=== PATIENT | female | born 1955 | race Caucasian/White ===

== ENCOUNTER 2019-06-27 14:02 | Emergency (ER) | payer MEDICARE, OTHER, SELFPAY ==
[2019-06-27 14:24] VITALS: BP 128/62; PULSE 79; RESP 16; TEMP 37.6; O2SAT 96; BMI 26.1
--- NOTE | 2019-06-27 15:36 | ED_ITS ---
HPI - Abdominal Pain <SAM Larkin-BC - Last Filed: 06/27/19 18:57> General Chief Complaint: Abdominal Pain Stated Complaint: patient states lt side pelvic pain x3-4days Time Seen by Provider: 06/27/19 14:20 Source: patient Mode of arrival: Ambulatory Limitations: no limitations History of Present Illness HPI narrative: At the patient is a 63-year-old female nonsmoker with history of sleep apnea who presents with a chief complaint of left lower quadrant pain times 3-4 days. She has low-grade fevers, denies any nausea vomiting or diarrhea. Last bowel movement today and was reported to be normal. No chest pain or shortness of breath. She was seen this morning by nurse practitioner at the [facility], who referred her to the emergency department for further workup and evaluation. She denies any alleviating or exacerbating factors. Has not taken anything at home to feel better. Related Data Home Medications Medication Instructions Recorded Confirmed aspirin 81 mg tablet,delayed 81 mg PO DAILY 11/12/18 03/11/19 release paroxetine HCl 40 mg tablet 40 mg PO DAILY 11/12/18 03/11/19 trazodone 50 mg tablet 50 mg PO DAILY 11/12/18 03/11/19 Previous Rx's Medication Instructions Recorded amoxicillin-pot clavulanate 1 tab PO Q8HR 10 Days #30 tab 06/27/19 [Augmentin] hydrocodone-acetaminophen [Pavo] 1 tab PO Q4-6H PRN #10 tab 06/27/19 ondansetron 4 mg PO Q6H PRN #20 tab 06/27/19 Allergies Allergy/AdvReac Type Severity Reaction Status Date / Time No Known Drug Allergies Allergy Unverified 03/11/19 14:42 Review of Systems <YENI LarkinBC - Last Filed: 06/27/19 18:57> Review of Systems Narrative: GENERAL: Denies chills, fatigue, malaise, fever, sweats. HEENT: Denies sinus pain, ear pain, sore throat, difficulty swallowing, dizziness. RESPIRATORY: Denies dyspnea, cough, wheezing, hemoptysis, sputum. CARDIOVASCULAR: Denies chest pain, palpitations, orthopnea, edema, GASTROINTESTINAL: See HPI : Denies dysuria, frequency, incontinence, hematuria, urinary retention. MUSCULOSKELETAL: denies weakness, joint pain, or bony pain SKIN: Denies rash, skin lesions, or other NEUROLOGIC: Denies weakness, headache, numbness, change in speech, confusion, seizures, incoordination. PSYCHIATRIC: No concerning psychosocial issues. 12 point review of systems is negative except for those stated above Patient History <BOYD Larkin - Last Filed: 06/27/19 18:57> Medical History Depression (Chronic) Insomnia (Chronic) Obstructive sleep apnea (Chronic) Snoring (Chronic) Social History Smoking Status: Never smoker Smoking Status: Never smoker Substance Use Type: does not use Exam <BOYD Larkin - Last Filed: 06/27/19 18:57> Narrative Exam Narrative: GENERAL: This is a well-nourished, well-developed patient, in acute distress HEAD: Atraumatic. Normocephalic. No temporal or scalp tenderness. EYES: Pupils equal round and reactive. Extraocular motions intact. No scleral icterus. No injection or drainage. ENT: Nose without bleeding, purulent drainage or septal hematoma. Throat without erythema, tonsillar hypertrophy or exudate. Uvula midline. Airway patent. NECK: Trachea midline. No JVD or lymphadenopathy. Supple, nontender, no meningeal signs. CARDIOVASCULAR: Regular rate and rhythm RESPIRATORY: Clear to auscultation. Breath sounds equal bilaterally. No wheezes, rales, or rhonchi. No cough. No increased respiratory effort. No accessory muscle use. GASTROINTESTINAL: Abdomen soft, tenderness to left lower quadrant palpation, nondistended. No hepato-splenomegaly, or palpable masses. No guarding. Active bowel sounds all 4 quadrants EXTREMITIES: No clubbing, cyanosis, or edema. No joint tenderness, effusion, or edema noted. BACK: Nontender without deformity or crepitance. No flank tenderness. NEURO: AOx3. SKIN: No rash or erythema visible skin Initial Vital Signs Initial Vital Signs: Vital Signs Temperature 99.6 F 06/27/19 14:24 Pulse Rate 79 06/27/19 14:24 Respiratory Rate 16 06/27/19 14:24 Blood Pressure 128/62 06/27/19 14:24 Pulse Oximetry 96 06/27/19 14:24 <Alfredo Wagoner DO - Last Filed: 06/27/19 19:10> Initial Vital Signs Initial Vital Signs: Vital Signs Temperature 99.6 F 06/27/19 14:24 Pulse Rate 79 06/27/19 14:24 Respiratory Rate 16 06/27/19 14:24 Blood Pressure 128/62 06/27/19 14:24 Pulse Oximetry 96 06/27/19 14:24 Course <BOYD Larkin - Last Filed: 06/27/19 18:57> Orders Ordered: ED Orders 06/27/19 15:40 Amylase Stat Complete Blood Count AUTO DIFF Stat Comprehensive Metabolic Panel Stat Lipase Stat 06/27/19 16:20 CT abdomen pelvis w con Stat Discontinued Medications Amoxicillin/Clavulanate Potassium (Augmentin 875-125 Mg) 1 tab PO NOW ONE Stop: 06/27/19 17:03 Last Admin: 06/27/19 17:13 Dose: 1 tab Documented by: MURRAY Sodium Chloride (Normal Saline 0.9%) 1,000 mls @ 150 mls/hr IV CONT KANWAL Last Admin: 06/27/19 17:12 Dose: 150 mls/hr Documented by: MURRAY Vital Signs Vital signs: Vital Signs - 8 hr 06/27/19 14:24 06/27/19 16:16 06/27/19 17:00 Temperature 99.6 F Pulse Rate 79 87 79 Respiratory Rate 16 Blood Pressure 128/62 Blood Pressure [Left Arm] 124/60 124/60 Pulse Oximetry 96 95 98 <DO Hilaria Davis Last Filed: 06/27/19 19:10> Orders Ordered: ED Orders 06/27/19 15:40 Amylase Stat Complete Blood Count AUTO DIFF Stat Comprehensive Metabolic Panel Stat Lipase Stat 06/27/19 16:20 CT abdomen pelvis w con Stat Discontinued Medications Amoxicillin/Clavulanate Potassium (Augmentin 875-125 Mg) 1 tab PO NOW ONE Stop: 06/27/19 17:03 Last Admin: 06/27/19 17:13 Dose: 1 tab Documented by: MURRAY Sodium Chloride (Normal Saline 0.9%) 1,000 mls @ 150 mls/hr IV CONT KANWAL Last Admin: 06/27/19 17:12 Dose: 150 mls/hr Documented by: MURRAY Vital Signs Vital signs: Vital Signs - 8 hr 06/27/19 14:24 06/27/19 16:16 06/27/19 17:00 Temperature 99.6 F Pulse Rate 79 87 79 Respiratory Rate 16 Blood Pressure 128/62 Blood Pressure [Left Arm] 124/60 124/60 Pulse Oximetry 96 95 98 MDM - Abdominal Pain <Yolandewander Matamer, STUDIO MUSICIAN- - Last Filed: 06/27/19 18:57> Lab Data Result diagrams: 06/27/19 15:40 06/27/19 15:40 Labs: Lab Results 06/27/19 06/27/19 Range/Units 15:40 15:40 WBC 13.8 H (4.5-11.0) X10^3/uL RBC 4.23 (4.0-5.2) X10^6/uL Hgb 13.6 (12.0-16.0) g/dL Hct 40.6 (36-46) % MCV 95.9 (80-100) fL MCH 32.1 (26-34) PG MCHC 33.5 (30-36) % RDW 13.5 (11.6-14.8) % Plt Count 194 (150-400) X10^3/uL Neut % (Auto) 65.2 (50-75) % Lymph % (Auto) 22.4 L (25-40) % [place] % (Auto) 10.9 (3-14) % Eos % (Auto) 1.0 L (2-4) % Baso % (Auto) 0.5 (0-2) % Neut # (Auto) 9000 H (3385-2551) /uL Lymph # (Auto) 3100 (9944-3140) /uL [place] # (Auto) 1500 H (0-900) /uL Eos # (Auto) 100 (0-450) /uL Baso # (Auto) 100 (0-100) /uL Sodium 140 (137-145) mmol/L Potassium 4.3 (3.4-5.1) mmol/L Chloride 101 (98-107) mmol/L Carbon Dioxide 30 (22-32) mmol/L BUN 12 (7-17) mg/dL Creatinine 0.60 (0.52-1.04) mg/dL Estimated GFR > 60.0 (>60) mL/min BUN/Creatinine Ratio 20.0 (6-22) Glucose 106 (80-110) mg/dL Calcium 9.4 (8.4-10.2) mg/dL Total Bilirubin 0.5 (0.2-1.3) mg/dL AST 30 (14-36) IU/L ALT 16 (<35) IU/L Alkaline Phosphatase 95 (38-126) U/L Total Protein 7.9 (6.3-8.2) g/dL Albumin 4.6 (3.5-5.0) g/dL Globulin 3.3 (1.7-4.1) g/dL Albumin/Globulin Ratio 1.4 (1.0-2.8) Amylase 63 (30-110) U/L Lipase 57 (23-300) U/L Point of care testing: Urine Dip Bedside Urine Glucose 100 mg/dl Bedside Urine Bilirubin - Negative Bedside Urine Ketone + 15 Urine Specific [place] 1.015 Bedside Urine Occult Blood - Negative Bedside Urine Protein - Negative Bedside Urine Urobilinogen - Negative Bedside Urine Nitrite - Negative Bedside Urine Leukocytes - Negative Esterase Imaging Data CT scan - abdomen/pelvis: Radiologist's Impression: [address] [place] [address] CT Scan Report Signed Patient: Adina Trammell#: [id number] : 4Acct:[id number] Age/Sex: 63 / FDate of Service: 06/27/19 Loc: ED Accession Number: [id number] Procedure: CT abdomen pelvis w con Ordering Provider: Yolande Gayle [facility] PROCEDURE: CT ABDOMEN PELVIS W CON INDICATIONS: Left lower quadrant pain, fever TECHNIQUE: After the administration of intravenous contrast, 5 mm thick sections acquired from the diaphragm to the symphysis. 5 mm coronal and sagittal reformats were acquired. For radiation dose reduction, the following was used: automated exposure control, adjustment of mA and/or kV according to patient size. COMPARISON: None. FINDINGS: Image quality: Excellent. ABDOMEN: Lung bases: There is mild dependent atelectasis and mild scarring in the inferior right middle lobe. Heart size is normal. Solid organs: There is a cyst within segment 2 of the left hepatic lobe measuring up to 3.4 cm. A small cyst is also in the straight inferiorly in segment 5 of the right hepatic lobe measuring 0.7 cm. The gallbladder appears within normal limits without calcified gallstones. Biliary system is slightly dilated with the common bile duct measuring up to approximately 0.8 cm. No calcified common duct stone or disc rete obstructing mass visualized. Pancreas enhances normally. No peripancreatic fat stranding or fluid collections. No pancreatic duct dilatation. The spleen is normal in size. No adrenal nodules. Kidneys demonstrate no hydronephrosis. Peritoneum and bowel: Small bowel loops demonstrate normal wall thickness and caliber. The appendix is normal in appearance. There is colonic diverticulosis with associated diverticular wall thickening and peridiverticular inflammatory fat stranding in the left lower quadrant associated with segmental colonic wall thickening. Findings are consistent with acute diverticulitis. No macroscopic free air or abscess collection. There is a small amount of free fluid in the left paracolic gutter extending into the pelvis. Nodes and vessels: No retroperitoneal or mesenteric adenopathy by size criteria. Aorta and inferior vena cava are normal in size. Miscellaneous: No ventral hernias. PELVIS: Genitourinary: Bladder wall thickness is normal overall with mild irregularity of the bladder wall. Miscellaneous: No inguinal hernias or adenopathy. Bones: No suspicious bony lesions. No vertebral body compression fractures. IMPRESSION: 1. Sigmoid diverticulitis without evidence of diverticular abscess or macroscopic free air. 2. Mild irregularity of the bladder wall is nonspecific and may reflect a mild cystitis. Recommend correlation with urinalysis. Dictated by: Frank Bah M.D. on 06/27/2019 at 15:45 Approved by: Frank Bah M.D. on 06/27/2019 at 15:52 [facility] Narrative Medical decision making narrative: The patient is a 63-year-old female presents with a chief complaint of left lower quadrant pain. She has slight leuk ocytosis. CT is concerning for diverticulitis. Discussed Cipro and Flagyl versus amoxicillin with clavulanic acid. Patient would like to avoid Cipro, and elected to use Augmentin. Patient started on Augmentin t.i.d. as per up-to-date recommendations. Also gave prescriptions of Zofran and Pavo. Discussed at length the importance of following up with primary care provider in the next few days. Discussed coming back to the emergency department for any acute concerns such as inability keep down fluids, fever etcetera. Patient has no questions or concerns upon discharge and states understanding return precautions as well as follow-up care. Patient was able to tolerate oral medications in the emergency department. Discussed at length dietary changes. <Alfredo Wagoner DO - Last Filed: 06/27/19 19:10> Lab Data Labs: Lab Results 06/27/19 06/27/19 Range/Units 15:40 15:40 WBC 13.8 H (4.5-11.0) X10^3/uL RBC 4.23 (4.0-5.2) X10^6/uL Hgb 13.6 (12.0-16.0) g/dL Hct 40.6 (36-46) % MCV 95.9 (80-100) fL MCH 32.1 (26-34) PG MCHC 33.5 (30-36) % RDW 13.5 (11.6-14.8) % Plt Count 194 (150-400) X10^3/uL Neut % (Auto) 65.2 (50-75) % Lymph % (Auto) 22.4 L (25-40) % [place] % (Auto) 10.9 (3-14) % Eos % (Auto) 1.0 L (2-4) % Baso % (Auto) 0.5 (0-2) % Neut # (Auto) 9000 H (1020-3257) /uL Lymph # (Auto) 3100 (3824-6235) /uL [place] # (Auto) 1500 H (0-900) /uL Eos # (Auto) 100 (0-450) /uL Baso # (Auto) 100 (0-100) /uL Sodium 140 (137-145) mmol/L Potassium 4.3 (3.4-5.1) mmol/L Chloride 101 (98-107) mmol/L Carbon Dioxide 30 (22-32) mmol/L BUN 12 (7-17) mg/dL Creatinine 0.60 (0.52-1.04) mg/dL Estimated GFR > 60.0 (>60) mL/min BUN/Creatinine Ratio 20.0 (6-22) Glucose 106 (80-110) mg/dL Calcium 9.4 (8.4-10.2) mg/dL Total Bilirubin 0.5 (0.2-1.3) mg/dL AST 30 (14-36) IU/L ALT 16 (<35) IU/L Alkaline Phosphatase 95 (38-126) U/L Total Protein 7.9 (6.3-8.2) g/dL Albumin 4.6 (3.5-5.0) g/dL Globulin 3.3 (1.7-4.1) g/dL Albumin/Globulin Ratio 1.4 (1.0-2.8) Amylase 63 (30-110) U/L Lipase 57 (23-300) U/L Point of care testing: Urine Dip Bedside Urine Glucose 100 mg/dl Bedside Urine Bilirubin - Negative Bedside Urine Ketone + 15 Urine Specific [place] 1.015 Bedside Urine Occult Blood - Negative Bedside Urine Protein - Negative Bedside Urine Urobilinogen - Negative Bedside Urine Nitrite - Negative Bedside Urine Leukocytes - Negative Esterase Discharge Plan Departure Patient Disposition: Home Clinical Impression: Diverticulitis Discharge Date/Time: 06/27/19 17:48 Instructions: DI for Diverticulitis Activity Restrictions/Additional Instructions: As discussed, your CT scan shows diverticulitis. As discussed, please modify her diet accordingly. I have included a handout regarding diverticulitis. I have sent 3 prescriptions to [facility] in [place], there is 1 antibiotic, 1 pain medicine and 1 nausea medicine I have given you a prescription of a narcotic for pain. Be aware that this can be constipating and sedating. I encouraged taking with a stool softener, pushing fluids and fiber. Do not take and drive, operate heavy machinery, etc. Do not combine it with any other sedating substances such as alcohol. The combination of narcotics and alcohol and/or other sedatives can be lethal. Please be aware that we do not provide refills of controlled substances in the emergency department. Please follow up with your primary care provider. Please follow-up with primary care provider in the next few days. Please come back to the emergency department for any acute concerns such as inability keep down fluids etcetera Prescriptions: New ondansetron 4 mg tablet,disintegrating 4 mg PO Q6H PRN (Reason: nausea and vomiting) Qty: 20 RF: 0 hydrocodone-acetaminophen [Pavo] 5-325 mg tablet 1 tab PO Q4-6H PRN (Reason: pain) Qty: 10 RF: 0 amoxicillin-pot clavulanate [Augmentin] 875-125 mg tablet 1 tab PO Q8HR 10 Days Qty: 30 RF: 0 No Action trazodone 50 mg tablet 50 mg PO DAILY RF: 0 aspirin [Adult Low Dose Aspirin] 81 mg tablet,delayed release (DR/EC) 81 mg PO DAILY RF: 0 paroxetine HCl 40 mg tablet 40 mg PO DAILY RF: 0 Referrals: [facility] [Provider Group]
[2019-06-27 15:51] LABS: Add Manual Diff / Slide Review NO; Basophils Absolute Auto 100 /uL (0-100); Basophils Percent Auto 0.5 % (0-2); Eosinophils Absolute Auto 100 /uL (0-450); Hematocrit 40.6 % (36-46); Hemoglobin 13.6 g/dL (12.0-16.0); Lymphocytes Absolute Auto 3100 /uL (1100-4500); Lymphocytes Percent Auto 22.4 % (25-40); Mean Corpuscular HGB Conc 33.5 % (30-36); Mean Corpuscular Hemoglobin 32.1 PG (26-34); Mean Corpuscular Volume 95.9 fL (80-100); Monocytes Absolute Auto 1500 /uL (0-900); Monocytes Percent Auto 10.9 % (3-14); Neutrophils Absolute Auto 9000 /uL (1500-7000); Neutrophils Percent Auto 65.2 % (50-75); Platelet Count 194 X10^3/uL (150-400); Red Blood Cell Count 4.23 X10^6/uL (4.0-5.2); Red Cell Distribution Width 13.5 % (11.6-14.8); White Blood Cell Count 13.8 X10^3/uL (4.5-11.0)
[2019-06-27 16:09] LABS: Alanine Aminotransferase 16 IU/L (<35); Albumin 4.6 g/dL (3.5-5.0); Albumin Globulin Ratio 1.4 (1.0-2.8); Alkaline Phosphatase 95 U/L (38-126); Amylase 63 U/L (30-110); Aspartate Aminotransferase 30 IU/L (14-36); Bilirubin Total 0.5 mg/dL (0.2-1.3); Blood Urea Nitrogen 12 mg/dL (7-17); Calcium 9.4 mg/dL (8.4-10.2); Carbon Dioxide 30 mmol/L (22-32); Chloride 101 mmol/L (98-107); Estimated Glomerular Filt Rate > 60.0 mL/min (>60); Globulin 3.3 g/dL (1.7-4.1); Glucose 106 mg/dL (80-110); HEMOLYSIS < 15 (0-50); Lipase 57 U/L (23-300); Potassium 4.3 mmol/L (3.4-5.1); Sodium 140 mmol/L (137-145); Total Protein 7.9 g/dL (6.3-8.2)
[2019-06-27 16:16] VITALS: BP 124/60; PULSE 87; O2SAT 95
--- NOTE | 2019-06-27 16:20 | DI.CT.S_ITS ---
PROCEDURE: CT ABDOMEN PELVIS W CON INDICATIONS: Left lower quadrant pain, fever TECHNIQUE: After the administration of intravenous contrast, 5 mm thick sections acquired from the diaphragm to the symphysis. 5 mm coronal and sagittal reformats were acquired. For radiation dose reduction, the following was used: automated exposure control, adjustment of mA and/or kV according to patient size. COMPARISON: None. FINDINGS: Image quality: Excellent. ABDOMEN: Lung bases: There is mild dependent atelectasis and mild scarring in the inferior right middle lobe. Heart size is normal. Solid organs: There is a cyst within segment 2 of the left hepatic lobe measuring up to 3.4 cm. A small cyst is also in the straight inferiorly in segment 5 of the right hepatic lobe measuring 0.7 cm. The gallbladder appears within normal limits without calcified gallstones. Biliary system is slightly dilated with the common bile duct measuring up to approximately 0.8 cm. No calcified common duct stone or discrete obstructing mass visualized. Pancreas enhances normally. No peripancreatic fat stranding or fluid collections. No pancreatic duct dilatation. The spleen is normal in size. No adrenal nodules. Kidneys demonstrate no hydronephrosis. Peritoneum and bowel: Small bowel loops demonstrate normal wall thickness and caliber. The appendix is normal in appearance. There is colonic diverticulosis with associated diverticular wall thickening and peridiverticular inflammatory fat stranding in the left lower quadrant associated with segmental colonic wall thickening. Findings are consistent with acute diverticulitis. No macroscopic free air or abscess collection. There is a small amount of free fluid in the left paracolic gutter extending into the pelvis. Nodes and vessels: No retroperitoneal or mesenteric adenopathy by size criteria. Aorta and inferior vena cava are normal in size. Miscellaneous: No ventral hernias. PELVIS: Genitourinary: Bladder wall thickness is normal overall with mild irregularity of the bladder wall. Miscellaneous: No inguinal hernias or adenopathy. Bones: No suspicious bony lesions. No vertebral body compression fractures. IMPRESSION: 1. Sigmoid diverticulitis without evidence of diverticular abscess or macroscopic free air. 2. Mild irregularity of the bladder wall is nonspecific and may reflect a mild cystitis. Recommend correlation with urinalysis. Dictated by: Frank Bah M.D. on 06/27/2019 at 15:45 Approved by: Frank Bah M.D. on 06/27/2019 at 15:52
[2019-06-27 17:00] VITALS: BP 124/60; PULSE 79; O2SAT 98
[2019-06-27] MEDS: SODIUM CHLORIDE 0.9% 1,000 ML 150 ML IV (17:12)
[2019-06-27] MEDS: AMOXICILLIN/CLAV 875/125 MG 1 TAB PO (17:13)
== END 2019-06-27 17:48 | disposition home or self-care (01) ==
PROVIDERS: Emergency Provider Nurse Practitioner Family
DX: K57.92 Diverticulitis of intestine, part unspecified, without perforation or abscess without bleeding (principal); R10.32 Left lower quadrant pain; R50.9 Fever, unspecified
CPT/HCPCS: 36415; 74177; 80053; 81003; 82150; 83690; 85025; 99284; Q9967

== ENCOUNTER 2020-11-24 09:14 | Observation (INO) | payer MEDICARE, OTHER, SELFPAY ==
[2020-11-24] VITALS (13 sets, daily range): BP systolic 114–165; BP diastolic 58–73; PULSE 71–88; RESP 14–28; TEMP 36.4–36.8; O2SAT 95–98; BMI 20.9
--- NOTE | 2020-11-24 09:38 | DI.CT.S_ITS ---
PROCEDURE: CT STROKE INDICATIONS: ataxia TECHNIQUE: Noncontrast 4.5 mm thick angled axial sections acquired from the foramen magnum to the vertex, with coronal reformats. For radiation dose reduction, the following was used: automated exposure control, adjustment of mA and/or kV according to patient size. COMPARISON: None. FINDINGS: Image quality: Excellent. CSF spaces: Basal cisterns are patent. No extra-axial fluid collections. The ventricles are symmetric in size and shape. Brain: No intracranial bleeds or masses. There is mild cerebral volume loss for age, with resultant ventricular and sulcal prominence. There are mild periventricular and deep white matter chronic small vessel ischemic changes. Skull and face: Calvarium and visualized facial bones appear intact, without suspicious lesions. Sinuses: Visualized sinuses and mastoids are clear. IMPRESSION: No acute intracranial disease process. Findings discussed with Dr. Wagoner on November 24, 2020 at 9:41 a.m. This study fulfills neurological imaging criteria for inclusion or exclusion of acute stroke therapies based on available published neurological guidelines. Dictated by: Samina Machado MD, PhD on 11/24/2020 at 9:41 Approved by: Samina Machado MD, PhD on 11/24/2020 at 9:43
--- NOTE | 2020-11-24 09:54 | ED_ITS ---
HPI - Neuro Symptoms/Deficit General Chief Complaint: Neuro Symptoms/Deficit Stated Complaint: Staggering, Not able to stay balanced Time Seen by Provider: 11/24/20 09:20 Source: patient Mode of arrival: Wheelchair Limitations: no limitations History of Present Illness HPI Narrative: 64-year-old female nonsmoker with noncontributory medical history presents with the chief complaint of some dizziness and lightheadedness off and on for many days if not weeks. She denies any blurred vision or trouble with speech. She denies any runny nose, nasal congestion or trouble swallowing. She denies any ear pain. She does think that perhaps she get some more lightheaded when looking left but is unclear. She denies chest pain or shortness of breath. She has no nausea, vomiting or diarrhea. She does admit that she has noticed for many months that her left leg seems to lag behind a bit and she has nearly fallen a few times when she steps to put weight on it. She denies any fever chills, has no midline back pain and denies control of bowel or bladder. Related Data Home Medications Medication Instructions Recorded Confirmed aspirin 81 mg tablet,delayed 81 mg PO QPM 11/12/18 11/24/20 release (Adult Low Dose Aspirin) paroxetine HCl 40 mg tablet 40 mg PO QPM 11/12/18 11/24/20 trazodone 50 mg tablet 50 mg PO BEDTIME 11/12/18 11/24/20 celecoxib 100 mg capsule 100 mg PO QPM 11/24/20 11/24/20 Previous Rx's Medication Instructions Recorded meclizine 25 mg tablet 25 mg PO BID-TID PRN #14 tab 11/24/20 methylprednisolone 4 mg tablets in See Rx Instructions .ROUTE 11/24/20 a dose pack (Medrol (Bertrand)) .COMPLEX #21 ea Allergies Allergy/AdvReac Type Severity Reaction Status Date / Time No Known Drug Allergies Allergy Verified 11/24/20 09:18 Review of Systems Review of Systems Narrative: GENERAL: Denies chills, fatigue, malaise, fever, sweats. HEENT: Denies sinus pain, ear pain, sore throat, difficulty swallowing, dizziness. RESPIRATORY: Denies dyspnea, cough, wheezing, hemoptysis, sputum. CARDIOVASCULAR: Denies chest pain, palpitations, orthopnea, edema, GASTROINTESTINAL: Denies nausea, vomiting, abdominal pain, diarrhea, constipation, melena. : Denies dysuria, frequency, incontinence, hematuria, urinary retention. MUSCULOSKELETAL: See HPI SKIN: Denies rash, skin lesions, or other NEUROLOGIC: See HPI PSYCHIATRIC: No concerning psychosocial issues. 12 point review of systems is negative except for those stated above Patient History Medical History (Updated 11/24/20 @ 12:29 by Alfredo Wagoner DO) Depression Insomnia Obstructive sleep apnea Snoring Social History Smoking Status: Unknown if ever smoked Smoking Status: Unknown if ever smoked alcohol intake frequency: holidays/special occasions only Substance Use Type: does not use Exam Narrative Exam Narrative: GENERAL: [64] year old patient appears stated age. Well- developed patient, in mild distress. HEAD: Atraumatic. Normocephalic. EYES: Pupils equal round and reactive. Extraocular motions intact. No scleral icterus. No injection or drainage. ENT: Nose without bleeding, purulent drainage. Throat without erythema, tonsil lar hypertrophy or exudate. Airway patent. Patient does have a reproducible left word nystagmus when turning her head left NECK: Trachea midline. Non tender CARDIOVASCULAR: Regular rate and rhythm without murmurs, gallops, or rubs. RESPIRATORY: Clear to auscultation. Breath sounds equal bilaterally. No wheezes, rales, or rhonchi. GASTROINTESTINAL: Abdomen soft, non-tender, nondistended. EXTREMITIES: No edema or joint tenderness. BACK: Nontender without deformity or crepitance. No flank tenderness. NEURO: AOx3. SKIN: No rash or erythema of visible areas Initial Vital Signs Initial Vital Signs: Vital Signs Temperature 98.2 F 11/24/20 09:18 Pulse Rate 72 11/24/20 09:18 Respiratory Rate 14 11/24/20 09:18 Blood Pressure 165/69 H 11/24/20 09:18 Pulse Oximetry 97 11/24/20 09:18 Scores NIH Stroke Scale Level of Conciousness: Alert, keenly responsive Ask month/age: Answers both questions correctly. Open/close eyes, close hand: Performs both tasks correctly Best gaze horizontal: Normal Visual heller: No visual loss Facial palsy: Normal symetrical movement Left arm drift: No drift for full 10 sec Right arm drift: No drift for full 10 sec Left leg drift: No drift for full 5 sec Right leg drift: No drift for full 5 sec Limb ataxia: Absent Sensory on face/arms/legs: Normal, no sensory loss Best language: No aphasia, normal Dysarthria: Normal Extinction or inattention: No abnormality Total NIH Stroke scale score: 0 Course Orders Ordered: ED Orders 11/24/20 10:33 MR lumbar spine wo con Stat 11/24/20 12:28 COVID19 - ADMIT ([employer] swab/PCR) Stat Acetaminophen (Acetaminophen 325 Mg Tablet) 650 mg PO Q6HR PRN PRN Reason: Fever Hydrocodone Bitart/Acetaminophen (Hydrocodone/Acet 5/325 Tablet) 2 tab PO Q4HR PRN PRN Reason: Pain, Severe (7-10) Al Hydrox/Mg Hydrox/Simethicone (Mag Hydrox/Alum/Simeth 30 Ml Udc) 30 ml PO Q6HR PRN PRN Reason: Dyspepsia Aspirin (Aspirin Ec 81 Mg Tablet) 81 mg PO QPM KANWAL Atorvastatin Calcium (Atorvastatin 20 Mg Tablet) 80 mg PO BEDTIME [facility] Celecoxib (Celecoxib 100 Mg Capsule) 100 mg PO QPM [facility] Clopidogrel Bisulfate (Clopidogrel 75 Mg Tablet) 75 mg PO DAILY [facility]AL Magnesium Hydroxide (Magnesium Hydroxide 30 Ml Udc) 30 ml PO DAILY PRN PRN Reason: Constipation Naloxone HCl (Naloxone 0.4 Mg/Ml Vial) 0.2 mg IV Q2MIN PRN PRN Reason: Opiate Reversal Ondansetron HCl (Ondansetron 4 Mg Odt) 4 mg PO Q8HR PRN PRN Reason: Nausea And Vomiting Paroxetine HCl (Paroxetine 20 Mg Tablet) 40 mg PO QPM KANWAL Trazodone HCl (Trazodone 50 Mg Tablet) 50 mg PO BEDTIME [facility] Discontinued Medications Aspirin (Aspirin 81 Mg Chew Tab) 324 mg PO NOW ONE Stop: 11/24/20 13:22 Last Admin: 11/24/20 13:50 Dose: 324 mg Documented by: MOE Aspirin (Aspirin Ec 325 Mg Tablet) 325 mg PO DAILY KANWAL Sodium Chloride (Normal Saline 0.9%) 1,000 mls @ 150 mls/hr IV CONT KANWAL Last Admin: 11/24/20 14:35 Dose: 150 mls/hr Documented by: Infusion: 11/24/20 14:35 Dose: 150 mls/hr Documented by: Admin: 11/24/20 10:06 Dose: 150 mls/hr Documented by: VISHAL Meclizine HCl (Meclizine Hcl 12.5 Mg Tablet) 25 mg PO NOW ONE Stop: 11/24/20 10:34 Last Admin: 11/24/20 11:21 Dose: 25 mg Documented by: VISHAL Paroxetine HCl (Paroxetine 20 Mg Tablet) 40 mg PO QPM KANWAL Trazodone HCl (Trazodone 50 Mg Tablet) 50 mg PO BEDTIME KANWAL Vital Signs Vital signs: Vital Signs - 8 hr 11/24/20 11:30 11/24/20 11:46 11/24/20 12:00 Pulse Rate 80 86 82 Respiratory Rate 18 24 Blood Pressure 125/63 125/63 136/64 Pulse Oximetry 98 96 97 11/24/20 12:30 11/24/20 13:00 Pulse Rate 88 73 Respiratory Rate 25 H 20 Blood Pressure 147/73 H 123/58 L Pulse Oximetry 97 95 MDM - Neuro Symptoms/Deficit Lab Data Result diagrams: 11/24/20 09:57 11/24/20 09:57 Labs: Lab Results 11/24/20 11/24/20 11/24/20 Range/Units 09:50 09:57 09:57 WBC 7.0 (4.5-11.0) X10^3/uL RBC 4.06 (4.0-5.2) X10^6/uL Hgb 13.4 (12.0-16.0) g/dL Hct 39.9 (36-46) % MCV 98.3 (80-100) fL MCH 33.0 (26-34) PG MCHC 33.5 (30-36) % RDW 13.7 (11.6-14.8) % Plt Count 177 (150-400) X10^3/uL Neut % (Auto) 76.3 H (50-75) % Lymph % (Auto) 14.4 L (25-40) % Mellette % (Auto) 8.3 (3-14) % Eos % (Auto) 0.8 L (2-4) % Baso % (Auto) 0.2 (0-2) % Neut # (Auto) 5400 (9342-9207) /uL Lymph # (Auto) 1000 L (9026-4994) /uL Mellette # (Auto) 600 (0-900) /uL Eos # (Auto) 100 (0-450) /uL Baso # (Auto) 0 (0-100) /uL Sodium 139 (137-145) mmol/L Potassium 4.1 (3.4-5.1) mmol/L Chloride 105 (98-107) mmol/L Carbon Dioxide 29 (22-32) mmol/L BUN 16 (7-17) mg/dL Creatinine 0.46 L (0.52-1.04) mg/dL Estimated GFR > 60.0 (>60) mL/min BUN/Creatinine Ratio 34.8 H (6-22) Glucose 111 H (80-110) mg/dL Calcium 9.6 (8.4-10.2) mg/dL Total Bilirubin 0.5 (0.2-1.3) mg/dL AST 28 (14-36) IU/L ALT 15 (<35) IU/L Alkaline Phosphatase 73 (38-126) U/L Total Creatine Kinase 32 (30-135) U/L CK-MB (CK-2) TNP CK-MB (CK-2) Rel Index TNP Troponin I < 0.012 (0.01-0.034) ng/mL Total Protein 7.1 (6.3-8.2) g/dL Albumin 4.3 (3.5-5.0) g/dL Globulin 2.8 (1.7-4.1) g/dL Albumin/Globulin Ratio 1.5 (1.0-2.8) U Opiates 300ng/mL cut Negative (Negative) Ur Oxycodone Screen Negative (Negative) Urine Methadone Screen Negative (Negative) Ur Barbiturates Screen Negative (Negative) U Tricyclic Antidepress Negative (Negative) Ur Phencyclidine Scrn Negative (Negative) Ur Amphetamines Screen Negative (Negative) U Methamphetamines Scrn Negative (Negative) Ur MDMA Scrn (Ecstasy) Negative (Negative) U Benzodiazepines Scrn Negative (Negative) Urine Cocaine Screen Negative (Negative) U Marijuana (THC) Screen Negative (Negative) SARS-CoV-2 (PCR) (Negative) 11/24/20 Range/Units 12:28 WBC (4.5-11.0) X10^3/uL RBC (4.0-5.2) X10^6/uL Hgb (12.0-16.0) g/dL Hct (36-46) % MCV (80-100) fL MCH (26-34) PG MCHC (30-36) % RDW (11.6-14.8) % Plt Count (150-400) X10^3/uL Neut % (Auto) (50-75) % Lymph % (Auto) (25-40) % Mellette % (Auto) (3-14) % Eos % (Auto) (2-4) % Baso % (Auto) (0-2) % Neut # (Auto) (3487-5056) /uL Lymph # (Auto) (5564-0435) /uL Mellette # (Auto) (0-900) /uL Eos # (Auto) (0-450) /uL Baso # (Auto) (0-100) /uL Sodium (137-145) mmol/L Potassium (3.4-5.1) mmol/L Chloride (98-107) mmol/L Carbon Dioxide (22-32) mmol/L BUN (7-17) mg/dL Creatinine (0.52-1.04) mg/dL Estimated GFR (>60) mL/min BUN/Creatinine Ratio (6-22) Glucose (80-110) mg/dL Calcium (8.4-10.2) mg/dL Total Bilirubin (0.2-1.3) mg/dL AST (14-36) IU/L ALT (<35) IU/L Alkaline Phosphatase (38-126) U/L Total Creatine Kinase (30-135) U/L CK-MB (CK-2) CK-MB (CK-2) Rel Index Troponin I (0.01-0.034) ng/mL Total Protein (6.3-8.2) g/dL Albumin (3.5-5.0) g/dL Globulin (1.7-4.1) g/dL Albumin/Globulin Ratio (1.0-2.8) U Opiates 300ng/mL cut (Negative) Ur Oxycodone Screen (Negative) Urine Methadone Screen (Negative) Ur Barbiturates Screen (Negative) U Tricyclic Antidepress (Negative) Ur Phencyclidine Scrn (Negative) Ur Amphetamines Screen (Negative) U Methamphetamines Scrn (Negative) Ur MDMA Scrn (Ecstasy) (Negative) U Benzodiazepines Scrn (Negative) Urine Cocaine Screen (Negative) U Marijuana (THC) Screen (Negative) SARS-CoV-2 (PCR) Negative (Negative) Point of Care Testing Glucose POC 96 Urine Dip Bedside Urine Glucose Negative Bedside Urine Bilirubin - Negative Bedside Urine Ketone +/- 5 Urine Specific Norton 1.015 Bedside Urine Occult Blood - Negative Bedside Urine pH 6.5 Bedside Urine Protein - Negative Bedside Urine Urobilinogen - Negative Bedside Urine Nitrite - Negative Bedside Urine Leukocytes - Negative Esterase Imaging Data CT scan - head: Radiologist's Impression: [address] [id number] Scan ReportSigned Patient: Adina Trammell#: [id number]: 4Acct:[id number]/Sex: 64 / FDate of Service: 11/24/20Loc: EDAccession Number: [id number] Procedure: CT Stroke Ordering Provider: Alfredo Wagoner D.O. PROCEDURE: CT STROKE INDICATIONS: ataxia TECHNIQUE: Noncontrast 4.5 mm thick angled axial sections acquired from the foramen magnum to the vertex, with coronal reformats. For radiation dose reduction, the following was used: automated exposure control, adjustment of mA and/or kV according to patient size. COMPARISON: None. FINDINGS: Image quality: Excellent. CSF spaces: Basal cisterns are patent. No extra-axial fluid collections. The ventricles are symmetric in size and shape. Brain: No intracranial bleeds or masses. There is mild cerebral volume loss fo r age, with resultant ventricular and sulcal prominence. There are mild periventricular and deep white matter chronic small vessel ischemic changes. Skull and face: Calvarium and visualized facial bones appear intact, without suspicious lesions. Sinuses: Visualized sinuses and mastoids are clear. IMPRESSION: No acute intracranial disease process. Findings discussed with Dr. Wagoner on November 24, 2020 at 9:41 a.m. This study fulfills neurological imaging criteria for inclusion or exclusion of acute stroke therapies based on available published neurological guidelines. Dictated by: Samina Machado MD, PhD on 11/24/2020 at 9:41 Approved by: Samina Machado MD, PhD on 11/24/2020 at 9:43 MDM Narrative Medical decision making narrative: Upon completion of our evaluation and while discussing with the patient discharge plan she states that she has had more time to think and states that she definitely has a rapid worsening of her symptoms over the past 24 or more hours. She does admit that she has been having this problem with her left leg feeling heavy or weak for some time but now tells us that things have significantly worsened since yesterday and she states that she actually thinks her problem is more due to balance and being unsteady and not just lower extremity weakness. This is drastically different from what we had discussed initially. At this point time the patient would not be a tPA candidate and does not have evidence of large vessel occlusion but will require admission for stroke workup. Discharge Plan Departure Patient Disposition: Admitted as Observation Clinical Impression: Dizziness, Stroke Admit Date/Time: 11/24/20 13:15 Admit Provider: Magdalena Andrews
[2020-11-24] MEDS: SODIUM CHLORIDE 0.9% 1,000 ML 150 ML IV ×2 (10:06→14:35)
--- NOTE | 2020-11-24 10:11 | PC.NURSE ---
Pt had difficult with left leg heel slide to initiate but recovered. Reports hx of left leg weakness prior to yesterday.
[2020-11-24 10:17] LABS: UR Morphine/Opiate cutoff 300 Negative (Negative); Ur Creatinine Normal (Normal); Ur Specific Gravity Normal (Normal); Urine Amphetamines Negative (Negative); Urine Barbiturates Negative (Negative); Urine Benzodiazepines Negative (Negative); Urine Cocaine Negative (Negative); Urine MDMA Negative (Negative); Urine Methadone Negative (Negative); Urine Methamphetamines Negative (Negative); Urine Oxycodone Negative (Negative); Urine Phencyclidine Negative (Negative); Urine Tetrahydrocannabinol Negative (Negative); Urine Tricyclic Antidepressant Negative (Negative); Urine pH Normal (Normal)
[2020-11-24 10:17] LABS: Add Manual Diff / Slide Review NO; Basophils Absolute Auto 0 /uL (0-100); Basophils Percent Auto 0.2 % (0-2); Eosinophils Absolute Auto 100 /uL (0-450); Eosinophils Percent Auto 0.8 % (2-4); Hematocrit 39.9 % (36-46); Hemoglobin 13.4 g/dL (12.0-16.0); Lymphocytes Absolute Auto 1000 /uL (1100-4500); Lymphocytes Percent Auto 14.4 % (25-40); Mean Corpuscular HGB Conc 33.5 % (30-36); Mean Corpuscular Volume 98.3 fL (80-100); Monocytes Absolute Auto 600 /uL (0-900); Monocytes Percent Auto 8.3 % (3-14); Neutrophils Absolute Auto 5400 /uL (1500-7000); Neutrophils Percent Auto 76.3 % (50-75); Platelet Count 177 X10^3/uL (150-400); Red Blood Cell Count 4.06 X10^6/uL (4.0-5.2); Red Cell Distribution Width 13.7 % (11.6-14.8)
--- NOTE | 2020-11-24 10:33 | DI.MRI.S_ITS ---
PROCEDURE: MR LUMBAR SPINE WO CON INDICATIONS: left leg weakness TECHNIQUE: Noncontrast sagittal T1 spin echo and T2 fast echo, sagittal STIR, axial T1 and T2 fast spin echo through the lumbar spine. In cases with scoliosis, additional coronal T2 fast spin echo may be performed. COMPARISON: [facility], CT, CT ABDOMEN PELVIS W CON, 06/27/2019, 16:25. FINDINGS: Image quality: Excellent. Alignment and Curvature: There is normal bony alignment. Bone Marrow: Marrow is of normal overall signal. No acute vertebral body compression fractures. Spinal Cord: Conus medullaris terminates at the L1-L2 level. Visualized cord demonstrates normal signal and size. Paraspinous Soft Tissues: No paravertebral masses. T11-T12: Minimal right paracentral disc protrusion. No canal stenosis or foraminal stenosis. T12-L1: No canal stenosis or foraminal stenosis. L1-L2: Mild disc bulge. Facet hypertrophy. No canal stenosis or foraminal stenosis. L2-L3: Moderate diffuse disc bulge, with mild superimposed focal right paracentral disc protrusion abutting the right L3 nerve root in the right lateral recess. Mild bilateral lateral recess stenosis. No central canal stenosis. Mild bilateral foraminal stenosis. L3-L4: Severe chronic disc height loss. Facet hypertrophy. No central canal stenosis. Gbhs-cl-cavatklb right foraminal narrowing and mild left foraminal narrowing. L4-L5: Chronic moderate posterior disc protrusion plus osteophyte. Facet hypertrophy. Moderate canal stenosis. There is chronic mild impingement on the left L5 nerve root in the left lateral recess. Mild bilateral foraminal stenosis. L5-S1: Disc bulge. Facet hypertrophy. No canal stenosis. Mild right foraminal narrowing. Moderate to severe left foraminal narrowing with left foraminal L5 nerve root impingement. IMPRESSION: 1. There is multilevel degenerative change. 2. At L2-L3, there is disc bulge with mild superimposed right paracentral disc protrusion. There is mild bilateral lateral recess stenosis. 3. Findings at L4-L5 are chronic. There is chronic posterior disc protrusion plus osteophyte, with moderate canal stenosis. There is mild impingement on the left L5 nerve root in the left lateral recess. 4. At L5-S1, there is moderate to severe left foraminal narrowing with left L5 nerve root impingement. Dictated by: Devyn Berrios M.D. on 11/24/2020 at 11:35 Approved by: Devyn Berrios M.D. on 11/24/2020 at 11:47
[2020-11-24 10:37] LABS: Alanine Aminotransferase 15 IU/L (<35); Albumin 4.3 g/dL (3.5-5.0); Albumin Globulin Ratio 1.5 (1.0-2.8); Alkaline Phosphatase 73 U/L (38-126); Aspartate Aminotransferase 28 IU/L (14-36); BUN Creatinine Ratio 34.8 (6-22); Bilirubin Total 0.5 mg/dL (0.2-1.3); Blood Urea Nitrogen 16 mg/dL (7-17); Calcium 9.6 mg/dL (8.4-10.2); Carbon Dioxide 29 mmol/L (22-32); Chloride 105 mmol/L (98-107); Creatine Kinase 32 U/L (30-135); Estimated Glomerular Filt Rate > 60.0 mL/min (>60); Globulin 2.8 g/dL (1.7-4.1); Glucose 111 mg/dL (80-110); HEMOLYSIS < 15 (0-50); Potassium 4.1 mmol/L (3.4-5.1); Sodium 139 mmol/L (137-145); Total Protein 7.1 g/dL (6.3-8.2)
[2020-11-24 10:47] LABS: Troponin I < 0.012 ng/mL (0.01-0.034)
[2020-11-24] MEDS: MECLIZINE HCL 12.5 MG TABLET 25 MG PO (11:21)
[2020-11-24] MEDS: ASPIRIN 81 MG CHEW TAB 324 MG PO (13:50)
[2020-11-24 13:52] LABS: COVID19 - ADMIT (NP swab/PCR) Negative (Negative)
--- NOTE | 2020-11-24 14:39 | PC.NURSE ---
Pt to room 206 via stretcher - able to transfer self to br with sba and back to bed. Pt denies pain, nausea, or shortness of breath. Denies weakness but states when she is walking her balance feels off. IVF infusing as ordered. Bed alarm on for safety. Oriented Pt to room, call light. tv controls and bed controls. Reminded Pt she is not to get up without assistance. Pt agrees to call for assistance as needed.
--- NOTE | 2020-11-24 18:31 | DI.MRI.S_ITS ---
PROCEDURE: MR STROKE Pre- and post-contrast brain MRI, non-contrast brain MR angiogram, pre- and postcontrast neck MR angiogram INDICATIONS: R/O stroke TECHNIQUE: Brain: Noncontrast axial T1 spin echo, axial T2 fast spin echo, sagittal and axial FLAIR, coronal T2 fast spin echo, axial gradient echo, axial diffusion and ADC through the brain. After the administration of contrast, axial 3D VIBE of the cranial vasculature and brain. Brain MRA: Non-contrast 3-D time of flight MR angiogram, with multiple nxjijnq-vrtuwljba-pbmnqlwkwg (MIP) reformats performed. Neck MRA: Axial and sagittal TruFISP through the neck. Coronal dynamic MR angiogram during administration of contrast in the arterial and venous phases, with 3-dimenstional kjrtcsd-rcxbpoloe-lerlwmsfrd (MIP) reformats constructed from subtraction images. COMPARISON: [facility], CT, CT STROKE, 11/24/2020, 9:36. FINDINGS: Image quality: Excellent. BRAIN: CSF spaces: Ventricles are normal in size and shape. Basal cisterns are patent. No extra-axial fluid collections. Brain: No intracranial bleeds or mass effects. Quiñonez-white matter interface is normal. Diffusion weighted images show no acute ischemic insults. Brainstem appears normal. Normal intravascular flow voids are present. No abnormal intracranial enhancement. Skull and face: Calvarial marrow signal is normal. Orbits appear normal. Sinuses: Sinuses and mastoids are clear. BRAIN MR ANGIOGRAM: Anterior circulation: Intracranial internal carotid arteries are normal in size and enhancement. The flow within the paired anterior cerebral arteries is normal and symmetric. The flow within the middle cerebral arteries is normal and symmetric. The anterior communicating artery is seen. No stenoses, occlusions, or aneurysms. Posterior circulation: The visualized portions of the vertebral arteries demonstrate normal caliber, and join to form a normal appearing basilar artery. The flow within the posterior cerebral arteries is normal and symmetric. No stenoses, occlusions, or aneurysms. NECK MR ANGIOGRAM: Carotids: Great vessels demonstrate a conventional anatomy as they arise from the aortic arch. The origins of the common carotid arteries appear patent. The calibers and courses of both common carotid arteries are normal. The bifurcation regions appear normal bilaterally. The internal carotid arteries demonstrate normal course and caliber. Posterior circulation: The origins of the vertebral arteries appear patent. More superior portions of both vertebral arteries demonstrate normal course and caliber, and join to form a normal appearing basilar artery. Miscellaneous: Subclavian arteries appear patent. Pre-contrast images through the neck show no soft tissue abnormalities. IMPRESSION: BRAIN MRI: No MR evidence of acute ischemia. BRAIN MR ANGIOGRAM: No stenosis, occlusion, or aneurysm NECK MR ANGIOGRAM: No significant stenosis or dissection in the carotid or vertebral system. Dictated by: Korina Baptiste M.D. on 11/24/2020 at 20:12 Approved by: Korina Baptiste M.D. on 11/24/2020 at 20:23
--- NOTE | 2020-11-24 19:21 | PC.NURSE ---
Pt to MRI for MRI Stroke Protocol via w/c by Radiology personnel
[2020-11-24 20:24] LABS: Cholesterol 232 mg/dL (140-199); HDL Cholesterol 84 mg/dL (40-60); LDL Cholesterol Calculated 131 mg/dL (<100); Triglycerides 86 mg/dL (35-150)
[2020-11-24 20:26] LABS: Hemoglobin A1C% w Est Avg Glu 5.3 % (4.0-6.0)
[2020-11-24 20:57] LABS: Thyroid Stimulating Hormone 1.77 uIU/mL (0.47-4.68)
[2020-11-24] MEDS: PARoxetine 20 MG TABLET 40 MG PO (21:29)
[2020-11-24] MEDS: ATORVASTATIN 20 MG TABLET 80 MG PO (21:29)
[2020-11-24] MEDS: TRAZODONE 50 MG TABLET PO (21:29)
[2020-11-24 21:47] LABS: INR 1.1 (0.9-1.3)
[2020-11-24 21:50] LABS: PTT Partial Thromboplastin Tim 31 SECONDS (26.4-36.2)
--- NOTE | 2020-11-24 22:27 | PC.NURSE ---
Pt returned to floor from MRI at approx 183
--- NOTE | 2020-11-24 23:04 | PM.HP.1 ---
History of Present Illness History of Present Illness Date Patient Seen: 11/24/20 Time Patient Seen: 18:54 Chief complaint: Staggering, Not able to stay balanced Narrative: Patient is a 64-year-old female Naomie Trammell who presented to the ED today with the chief complaint of some dizziness, lightheadedness, and balance issues off and on since last night. She reports that it she feels like she is spinning not the room and only with movement or activity, not at rest laying in the bed. She denies any blurred /change in vision, difficulty with speech or swallowing. She denies any runny nose, nasal congestion, cough, ear pain, or recent illness/injury, or trauma. She denies chest pain or shortness of breath, nausea, vomiting or diarrhea. She does admit that she has noticed for many months that her left leg seems to lag behind a bit and she has nearly fallen a few times when she steps to put weight on it. During admit exam patient denied difficulty with coordination dorsiflexion, or ambulation. She denied extremity numbness, tingling, weakness, swelling of hands/feet, or impaired fine motor skills. She denies any fever chills, has no midline back pain and denies bowel or bladder incontinence. Patient has a medical history depression, insomnia, obstructive sleep apnea. Patient's vitals are stable and unremarkable upon admit BP 133/69, HR 81, R 17, 96% on room air, patient's CBC and CMP are all unremarkable within normal limits, patient had a negative troponin. Patient's brain CT was negative for any acute intracranial disease processes.Lumbar MRI demonstrated multilevel degenerative changes. L2-L3, there is disc bulge with mild superimposed right paracentral disc protrusion. There is mild bilateral lateral recess stenosis. L4-L5 are chronic. There is chronic posterior disc protrusion plus osteophyte, with moderate canal stenosis. There is mild impingement on the left L5 nerve root in the left lateral recess. L5-S1, there is moderate to severe left foraminal narrowing with left L5 nerve root impingement. Patient admitted for neurological deficit/balance issues, stroke rule out. Patient History Medical History Depression Insomnia Obstructive sleep apnea Snoring Surgical History (Updated 11/24/20 @ 23:11 by BOYD Briggs) No pertinent past surgical history Family & Social History Family History (Updated 11/24/20 @ 23:14 by Miranda Griffiths [facility]) Mother Cancer Father Alzheimer's dementia Social History: Prior Living Arrangements House Safety & Behavioral: Feels Safe in Current Yes Environment Been Physically Hurt or No Threatened By a Person Suicidal Ideation Description None Suicide Plan Description No Plan Tobacco & Substance use: Smoking Status Unknown if ever smoked alcohol intake frequency holiday/special occasion Substance Use Type does not use Meds Home Medications and Allergies Home Medications Medication Instructions Recorded Confirmed Type aspirin 81 mg tablet,delayed 81 mg PO QPM 11/12/18 11/24/20 History release (Adult Low Dose Aspirin) paroxetine HCl 40 mg tablet 40 mg PO QPM 11/12/18 11/24/20 History trazodone 50 mg tablet 50 mg PO BEDTIME 11/12/18 11/24/20 History celecoxib 100 mg capsule 100 mg PO QPM 11/24/20 11/24/20 History meclizine 25 mg tablet 25 mg PO BID-TID PRN #14 tab 11/24/20 Rx methylprednisolone 4 mg tablets in See Rx Instructions .ROUTE 11/24/20 Rx a dose pack (Medrol (Bertrand)) .COMPLEX #21 ea Allergies Allergy/AdvReac Type Severity Reaction Status Date / Time No Known Drug Allergies Allergy Verified 11/24/20 09:18 Review of Systems Review of Systems Narrative: All systems reviewed with the patient and are negative except otherwise documented. Exam Vital Signs (past 8 hours): - 11/24/20 20:00 11/24/20 20:40 Temperature 98.3 F Pulse Rate 75 Respiratory Rate 16 Blood Pressure 114/68 Pulse Oximetry 96 96 Oxygen Delivery Method Room Air Oxygen Flow Rate 0 Narrative Exam Narrative: General: Patient is a well-developed, well-nourished in no distress at this time. HEENT: Normocephalic, atraumatic, extraocular muscles intact, oral pharynx is clear and mucous membranes are moist. Neck is supple and symmetric, trachea is midline, no adenopathy, no thyroid enlargement, nontender, no masses palpated. Negative for JVD Chest: Normal AP diameter and contour without kyphoscoliosis, no nasal flaring, retractions, or tachypneic labored Lungs: Auscultation of all lung heller are clear without adventitious sounds, wheezes, rhonchi, or rales. Cardio: S1 & S2 with regular rate and rhythm with positive whooshing murmur 2/5, without rubs, or gallops, no carotid bruit, no cardiac pulsations present. Abdomen: Soft nontender, negative for organomegaly, or masses. Bowel sounds are present in all 4 quadrants without guarding or rebound, no CVA tenderness. Musculoskeletal: Muscle strength and tone are equal within normal limits, no deformity, crepitus, effusions, cyanosis, clubbing or edema present. Full range of motion intact radial and pedal pulses are normal. Skin: Warm dry and intact without rashes, ulcerations or petechiae. Neuro: Alert and orientated x3, strength is +5/5 in all extremities, sensation to touch intact, no gross deficits noted of cranial nerves. Psych: Patient has a well-kept appearance, appropriate affect, mental status attitude thought context and judgment are appropriate for age. Objective Labs Result Diagrams: 11/24/20 09:57 11/24/20 09:57 Labs: Laboratory Results - last 24 hr 11/24/20 11/24/20 11/24/20 09:50 09:57 09:57 WBC 7.0 RBC 4.06 Hgb 13.4 Hct 39.9 MCV 98.3 MCH 33.0 MCHC 33.5 RDW 13.7 Plt Count 177 Neut % (Auto) 76.3 H Lymph % (Auto) 14.4 L [place] % (Auto) 8.3 Eos % (Auto) 0.8 L Baso % (Auto) 0.2 Neut # (Auto) 5400 Lymph # (Auto) 1000 L [place] # (Auto) 600 Eos # (Auto) 100 Baso # (Auto) 0 PT INR APTT Sodium 139 Potassium 4.1 Chloride 105 Carbon Dioxide 29 BUN 16 Creatinine 0.46 L Estimated GFR > 60.0 BUN/Creatinine Ratio 34.8 H Glucose 111 H Hemoglobin A1c Calcium 9.6 Total Bilirubin 0.5 AST 28 ALT 15 Alkaline Phosphatase 73 Total Creatine Kinase 32 CK-MB (CK-2) TNP CK-MB (CK-2) Rel Index TNP Troponin I < 0.012 Total Protein 7.1 Albumin 4.3 Globulin 2.8 Albumin/Globulin Ratio 1.5 Triglycerides Cholesterol LDL Cholesterol, Calc HDL Cholesterol TSH U Opiates 300ng/mL cut Negative Ur Oxycodone Screen Negative Urine Methadone Screen Negative Ur Barbiturates Screen Negative U Tricyclic Antidepress Negative Ur Phencyclidine Scrn Negative Ur Amphetamines Screen Negative U Methamphetamines Scrn Negative Ur MDMA Scrn (Ecstasy) Negative U Benzodiazepines Scrn Negative Urine Cocaine Screen Negative U Marijuana (THC) Screen Negative SARS-CoV-2 (PCR) 11/24/20 11/24/20 11/24/20 09:57 09:57 09:57 WBC RBC Hgb Hct MCV MCH MCHC RDW Plt Count Neut % (Auto) Lymph % (Auto) [place] % (Auto) Eos % (Auto) Baso % (Auto) Neut # (Auto) Lymph # (Auto) [place] # (Auto) Eos # (Auto) Baso # (Auto) PT INR APTT Sodium Potassium Chloride Carbon Dioxide BUN Creatinine Estimated GFR BUN/Creatinine Ratio Glucose Hemoglobin A1c 5.3 Calcium Total Bilirubin AST ALT Alkaline Phosphatase Total Creatine Kinase CK-MB (CK-2) CK-MB (CK-2) Rel Index Troponin I Total Protein Albumin Globulin Albumin/Globulin Ratio Triglycerides 86 Cholesterol 232 H LDL Cholesterol, Calc 131 H HDL Cholesterol 84 H TSH 1.77 U Opiates 300ng/mL cut Ur Oxycodone Screen Urine Methadone Screen Ur Barbiturates Screen U Tricyclic Antidepress Ur Phencyclidine Scrn Ur Amphetamines Screen U Methamphetamines Scrn Ur MDMA Scrn (Ecstasy) U Benzodiazepines Scrn Urine Cocaine Screen U Marijuana (THC) Screen SARS-CoV-2 (PCR) 11/24/20 11/24/20 12:28 21:35 WBC RBC Hgb Hct MCV MCH MCHC RDW Plt Count Neut % (Auto) Lymph % (Auto) [place] % (Auto) Eos % (Auto) Baso % (Auto) Neut # (Auto) Lymph # (Auto) [place] # (Auto) Eos # (Auto) Baso # (Auto) PT 12.0 INR 1.1 APTT 31 Sodium Potassium Chloride Carbon Dioxide BUN Creatinine Estimated GFR BUN/Creatinine Ratio Glucose Hemoglobin A1c Calcium Total Bilirubin AST ALT Alkaline Phosphatase Total Creatine Kinase CK-MB (CK-2) CK-MB (CK-2) Rel Index Troponin I Total Protein Albumin Globulin Albumin/Globulin Ratio Triglycerides Cholesterol LDL Cholesterol, Calc HDL Cholesterol TSH U Opiates 300ng/mL cut Ur Oxycodone Screen Urine Methadone Screen Ur Barbiturates Screen U Tricyclic Antidepress Ur Phencyclidine Scrn Ur Amphetamines Screen U Methamphetamines Scrn Ur MDMA Scrn (Ecstasy) U Benzodiazepines Scrn Urine Cocaine Screen U Marijuana (THC) Screen SARS-CoV-2 (PCR) Negative Assessment & Plan Assessment & Plan narrative: 1. Neurological deficit (balance issues/Dizziness, rule out stroke), acute, present on admission -I suspect it is that this is paroxysmal vertigo. I do not believe that this is cord impingement as the patient denies any neurological symptoms and her exam was unremarkable. And patient's NIH: 0 with no neurological findings. -I did however have a lengthy discussion with the patient and discuss signs and symptoms of cord impingement or injury, and that would require immediate evaluation. -differential diagnosis TIA, stroke symptoms lasting greater than 24 hours, ischemic stroke, intracranial hemorrhage, subdural hematoma, epidural hematoma, seizure, brain tumor, migraine, vertigo, hypoglycemia, [place] syndrome, multiple sclerosis, aortic dissection, spinal cord impingement Vital signs q.4 hours, neuro checks PRN, NIH PRN, notify provider for temp greater than 38 C, , heart rate >100 -treat systolic blood pressure>220 or diastolic blood pressure> 120 -activity bed rest until initial physical therapy assessment is performed, then mobilize BERHANE as guided by Physical therapy, strict fall precautions. -Also recommend Stapleton-Hallpike maneuvers per PT -Brain MRI:Completed No evidence of acute ischemia, stenosis, occlusion, or aneurysm. Neck: No significant stenosis or dissection in the carotid or vertebral system. -supplemental O2 to maintain> 94%, check capillary blood glucose q.6 hours. -Diet NPO until swallow evaluation is done, then heart healthy if cleared -fluids:None -Medications: Aspirin 325 mg p.o. q.day within 48 hours, Plavix 75 mg daily. -labs CBC , PT/PTT/INR, CMP, TSH, troponins, glucose, hemoglobin A1c, Lipid panel 2. Depression, chronic, present on admission -patient denies suicidal ideation -continue patient's paroxetine 3. Insomnia, chronic, present on admission -continue patient's trazodone Code status: DNI Surrogate decision maker: ROSARIO Holley son COVID PCR: Negative COVID vaccination: DVT/VTE prophylaxis: Contraindicated patient placed on Plavix 75 mg an ASA 325 and SCDs Estimated length of stay: Less than 2 midnights. Patient's brain MR is negative for stroke, patient should be able to be discharged tomorrow for follow-up with her primary care. Scores GCS [place] coma scale eye opening: Spontaneous [place] coma scale verbal response: Orientated [place] coma scale motor response: Obey commands A[place]se coma scale total score: 15 NIHSS Level of Conciousness: Alert, keenly responsive Ask month/age: Answers both questions correctly. Open/close eyes, close hand: Performs both tasks correctly Best gaze horizontal: Normal Visual heller: No visual loss Facial palsy: Normal symetrical movement Left arm drift: No drift for full 10 sec Right arm drift: No drift for full 10 sec Left leg drift: No drift for full 5 sec Right leg drift: No drift for full 5 sec Limb ataxia: Absent Sensory on face/arms/legs: Normal, no sensory loss Best language: No aphasia, normal Dysarthria: Normal Extinction or inattention: No abnormality Total NIH Stroke scale score: 0 Wells' Criteria for PE Clinical signs and symptoms of DVT: No PE is #1 Dx or equally likely: No Heart rate > 100: No Immobilization at least 3 days or surg in previous 4 weeks: No History of PE or DVT: No Hemoptysis: No Malignancy w/Treatment within 6 months or palliative: No Wells' PE Score total: 0 Quality VTE Deep Vein Thrombosis/Pulmonary Embolism Present on Admission: No
[2020-11-25] VITALS (11 sets, daily range): BP systolic 109–130; BP diastolic 65–77; PULSE 73–92; RESP 16–18; TEMP 36.3–37.3; O2SAT 91–96
[2020-11-25 04:26] LABS: Bacteria Urine None Seen; RBC Urine None Seen (0-5/HPF)
[2020-11-25 04:34] LABS: Appearance Urine UA CLEAR; Bilirubin Urine UA NEGATIVE (NEGATIVE); Color Urine UA YELLOW; Glucose Urine UA NEGATIVE (Negative); Ketones Urine UA TRACE (NEGATIVE); Leukocyte Esterase Urine UA NEGATIVE (NEGATIVE); Nitrite Urine UA NEGATIVE (Negative); Occult Blood Urine UA NEGATIVE (Negative); Protein Urine UA NEGATIVE (Negative); Specific Gravity Urine UA 1.025 (1.000-1.035); Urobilinogen Urine UA 0.2 E.U./dL (0.2)
[2020-11-25 05:15] LABS: Culture Indicated Urine Cult Not Indicated; Squamous Epithelial Cell Urine 1-5 /HPF (0-5/HPF); WBC Urine 0-1/HPF (0-5/HPF)
[2020-11-25] MEDS: SCOPOLAMINE 1 PATCH TOP (06:31)
[2020-11-25] MEDS: ACETAMINOPHEN 325 MG TABLET 650 MG PO (06:37)
[2020-11-25 06:47] LABS: BUN Creatinine Ratio 30.2 (6-22); Blood Urea Nitrogen 13 mg/dL (7-17); Calcium 9.1 mg/dL (8.4-10.2); Carbon Dioxide 29 mmol/L (22-32); Chloride 106 mmol/L (98-107); Estimated Glomerular Filt Rate > 60.0 mL/min (>60); Glucose 96 mg/dL (80-110); HEMOLYSIS < 15 (0-50); Potassium 3.9 mmol/L (3.4-5.1); Sodium 139 mmol/L (137-145)
[2020-11-25 06:59] LABS: Troponin I < 0.012 ng/mL (0.01-0.034)
--- NOTE | 2020-11-25 09:45 | PT.IIE ---
Medical History (Last Reviewed 11/25/20 @ 12:30 by Amada Bettencourt MD) Depression Insomnia Obstructive sleep apnea Snoring Physical Therapy Inpatient Evaluation/Re-Eval M1 PT/OT-IP Prior Functional Status Start: 11/25/20 13:31 Freq: NEEDED Status: Active Protocol: Document 11/25/20 09:45 AB (Rec: 11/25/20 13:55 AB [id number]) Medical Review Prior Functional Status Medical History Reviewed Yes Communication able to make needs known Mobility and Gait pt stated that she is independent with all moblities and ambulation without AD Social History Household Members spouse Living Arrangements House Number of Floors (Floors) One Floor Number of Stairs To Enter/Railing? ramp to enter Home Environment Standard Height Toilet,Walk in Shower Home Equipment Quad Cane,Raised Toilet Seat w /Armrests,Shower Seat without Backrest Additional Social History Comment pt stated that her spouse has parkinson's dse and she takes care of him providing minimal physical assistance as needed M2 PT-IP Current Condition Start: 11/25/20 13:31 Freq: NEEDED Status: Active Protocol: Document 11/25/20 09:45 AB (Rec: 11/25/20 13:55 AB [id number]) Physical Therapy Current Condition Current Condition Evaluation Date 11/25/20 Treatment Diagnosis r/o CVA; vertigo; difficulty in walking Onset Date 11/24/20 M3 PT-IP Subjective Start: 11/25/20 13:31 Freq: NEEDED Status: Active Protocol: Document 11/25/20 09:45 AB (Rec: 11/25/20 13:55 AB [email or web address]) Subjective Physical Therapy Visit Type Type Initial Evaluation Visit Start Time 09:45 Visit Stop Time 10:28 Total Visit Minutes 43 Number of AURIST Visits 0 Physical Therapy Visit Comments Patient Comments pt is agreeable to do PT M4 PT-IP Mobility and Gait Start: 11/25/20 13:31 Freq: NEEDED Status: Active Protocol: Document 11/25/20 09:45 AB (Rec: 11/25/20 13:55 AB [id number]) PT-Bed Mobility Assessment Supine to Sit Supine to Sit Standby Assistance Sit to Supine Sit to Supine Standby Assistance Scooting Scooting to Edge of Bed Standby Assistance PT-Transfer Assessment Sit to and From Stand Sit to and from Stand Standby Assistance Equipment Transfer Assistive Device None,Gait Belt Orthotic/Prosthetic Devices or Brace: No Transfer Ability Level of Assist Contact Guard Assistance Comments Mobility Comments EMR reviewed and MD suspecting paroxysmal vertigo. Checked on pt and pt supine in bed. stated that she does not feel any dizziness/nausea/ lightheadedness. stated that it is more of heaviness on posterior neck/nape area. stated that last time she got slightly dizzy was when she was walking and all of a sudden felt dizzy and needing to sit down but dizziness was gone after she seated. BP monitored. BP in supine: 127/75 OK 89 O2 sat 90-91% pt completed supine to sit SBA. pt was able to sit on EOB SBA. no c/ o dizziness/ lightheadedness/ nausea, no nystagmus noted. BP in sittin/73 OK 89 O2 sat 90%. pt sat for a few more minutes and does not have any symptoms. BP checked after 2 min: 121/73 OK 104. Assessed cervical/neck area in seated position due to pt's c /o heaviness. noted L upper and mid traps tightness and scalenes, trigger point release conducted and stretching. pt stated decrease in cervical tightness /heaviness noted. pt completed sit to stand SBA. BP after 1-2 min of standing : 109/82 OK 107. O2 sat 89-90 %. pt tolerated 2 more minutes of standing. BP: 91/ 71 OK 112. pt does not d/co dizziness but stated that she feels shaky. pt sat down on EOB. BP checked in sittin/69 OK 93. pt agreed to ambulated and completed sit to stand SBA and ambulated in room ~ 20 ft without AD CGA and cues. presents with unsteady gait with increase LLE internal rotation. pt requested to go back to bed. completed sit to supine SBA. positioned pt in bed. call light and table placed within reach. BP in supine at end of tx session: 128/73 OK [address] Andrews informed regarding assessment/ orthostatic hypotension. Gait Assessment Gait Gait Assistance Required: Contact Guard Assist Distance (Feet) 20 Able to Maintain Weight Bearing Status Yes During Gait Assistive Devices Assistive Device None,Gait Belt Orthotic/Prosthetic Devices or Brace: No Gait Deviations General Gait Pattern Antalgic,Decreased Stride Length,Decreased Feet Clearance,Wide Based Gait Factors Limiting Gait Function Factors Limiting Gait Function Decreased Activity Tolerance, Decreased Strength,Difficulty Following Directions,Poor Balance,Poor Safety Awareness Comments Gait Comments pls refer to mobility section for details PT-Balance Assessment Sitting Balance and Reactions Static Sitting Balance Ability Normal Dynamic Sitting Balance Ability Good Standing Balance and Reactions Static Standing Balance Ability Good Dynamic Standing Balance Ability Fair Device Used without AD M5 PT-IP Objective Assessments Start: 11/25/20 13:31 Freq: NEEDED Status: Active Protocol: Document 11/25/20 09:45 AB (Rec: 11/25/20 13:55 AB [id number]) Orientation Orientation/Cognition Level of Alertness Alert Orientation Name,Place,Situation Language Function Ability No Deficits Noted Safety Awareness Understands Safety Issues Memory Description No Deficits Noted Gross Range of Motion Lower Extremity ROM Assessment Within Functional Limits Strength Lower Extremity Strength Assessment Within Functional Limits Coordination Assessment Gross Coordination Gross Coordination WNL Sensation Assessment Sensation Gross Sensation WNL Muscle Tone Muscle Tone WNL Yes M6 PT-IP Treatment Start: 11/25/20 13:31 Freq: NEEDED Status: Active Protocol: Document 11/25/20 09:45 AB (Rec: 11/25/20 13:[facility] Treatment Education Education Provided Safety M7 PT-IP Assessment and Plan Start: 11/25/20 13:31 Freq: NEEDED Status: Active Protocol: Document 11/25/20 09:45 AB (Rec: 11/25/20 13:55 [facility] PT Summary Assessment and Plan Potential Rehabilitation Potential Good Status of Condition at Evaluation Evolving Summary Impairments Pain,ROM,Strength,Balance, Coordination,Sensation,Tone, Cognition,Bed Mobility, Transfers,Gait,Activity Tolerance Assessment Summary pt requiring SBA to CGA with mobility without AD. presents with unsteady gait during ambulation and pt has orthostatic hypotension with standing activity. will continue to assess progress and mobility for safe d/c home . 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 will continue PT to work towards goals. Goals Bed Mobility Goal Independent Transfer Goal Independent,Cane,Front Wheeled Walker Gait Goal Independent,Cane,Front Wheel Walker Gait Distance 200 Other Goals ambulation without AD 200 ft SBA Days to Meet Goals 5 Frequency of Treatment Frequency Of Treatment Once a Day Treatment Plan Physical Therapy Treatment Plan Bed Mobility Training,Transfer Training,Gait Training, Therapeutic Exercise,Balance Retraining,Post Op Education, Discharge Planning,Hot or Cold Pack,Neuromuscular Re-ed, Coordination Retraining,Manual Therapy Other Recommendations and Next Treatment ambulation using least Focus restrictive AD if not safe without AD Precautions Other Precautions falls Recommendations To Nursing Amount of Assist Needed 1 Person Assist Discharge Recommendations PT Discharge Recommendations Home with Assistance,Home Health Transportation Needs at Discharge Private Vehicle,Wheelchair/ Cabulance
[2020-11-25] MEDS: CLOPIDOGREL 75 MG TABLET PO (10:00)
--- NOTE | 2020-11-25 11:15 | OT.IPNOTE ---
Per Dr. Andrews pt to have ortho consult today as per Lumbar MRI , pt has multilevel degenerative change. To wait on results of ortho consult before seeing pt for OT eval to get clarifications for pt's mobility/precautions for pt.
--- NOTE | 2020-11-25 12:28 | PM.HP.1 ---
History of Present Illness History of Present Illness Date Patient Seen: 11/25/20 Time Patient Seen: 12:28 Chief complaint: Staggering, Not able to stay balanced Narrative: This is a 64-year-old female who was admitted through the emergency room with complaints of vertigo and dizziness. She also has some weakness into her left ankle and an MRI scan was obtained for evaluation of her low back. She has a history of chronic left ankle weakness. She says that when she was in the about 30 years ago she developed some weakness into her left ankle with a somewhat of a dropped foot. It was not associated with severe low back pain. She continued in the despite some weakness in the ankle and did not have to be boarded out. She denies new pain or weakness. She does not note any numbness in bilateral upper lower extremities. She has some mild back pain and some mild hip pain and says that she actually started Celebrex about 10 days ago for some mild hip pain. She does note about a 9 month history of some tightness in her neck and shoulders. It does not radiate into her arms. She is not sensitive to heat and has not noticed any new neurological symptoms. Patient History Medical History Depression Insomnia Obstructive sleep apnea Snoring Surgical History No pertinent past surgical history Family & Social History Family History Mother Cancer Father Alzheimer's dementia Social History: Prior Living Arrangements House Safety & Behavioral: Feels Safe in Current Yes Environment Been Physically Hurt or No Threatened By a Person Suicidal Ideation Description None Suicide Plan Description No Plan Tobacco & Substance use: Smoking Status Unknown if ever smoked alcohol intake frequency holiday/special occasion Substance Use Type does not use Meds Home Medications and Allergies Home Medications Medication Instructions Recorded Confirmed Type aspirin 81 mg tablet,delayed 81 mg PO QPM 11/12/18 11/24/20 History release (Adult Low Dose Aspirin) paroxetine HCl 40 mg tablet 40 mg PO QPM 11/12/18 11/24/20 History trazodone 50 mg tablet 50 mg PO BEDTIME 11/12/18 11/24/20 History celecoxib 100 mg capsule 100 mg PO QPM 11/24/20 11/24/20 History meclizine 25 mg tablet 25 mg PO BID-TID PRN #14 tab 11/24/20 Rx methylprednisolone 4 mg tablets in See Rx Instructions .ROUTE 11/24/20 Rx a dose pack (Medrol (Bertrand)) .COMPLEX #21 ea Allergies Allergy/AdvReac Type Severity Reaction Status Date / Time No Known Drug Allergies Allergy Verified 11/24/20 09:18 Review of Systems Review of Systems Narrative: As stated the bed above, chief complaint is dizziness and a little bit a lightheadedness, denies recent fever chills or abdominal pain. She is not having severe low back pain. Exam Vital Signs (past 8 hours): - 11/25/20 08:30 Temperature 99.0 F Pulse Rate 86 Respiratory Rate 16 Blood Pressure 125/68 Pulse Oximetry 95 Oxygen Delivery Method Room Air Oxygen Flow Rate 0 Narrative Exam Narrative: HEENT is benign, she has slight restricted range of motion in her neck, she has normal strength in bilateral upper extremities, reflexes are normal in bilateral upper extremities, she has normal sensation, she is alert she is oriented, her lungs are clear abdomen is benign, back is nontender, straight leg raise negative bilaterally, there is no pain with range of motion in her hips knees or ankles, she has full range of motion, there is minimal weakness in the left lower extremity of her EHL and peroneal tendons, right lower extremities intact, she had mildly hyperreflexic in bilateral lower extremities at the patellar tendon suprapatellar and Achilles, there are no beats of clonus Objective Imaging MRI - lumbar: My impression: Multiple level degenerative disc disorder with disc space narrowing at L3-4 and L4-5, left-sided neural foraminal narrowing at L4-5, no acute herniation or compression fracture, no significant central stenosis, no visualized abnormality in the portion of the spinal cord that is visualized. Labs Result Diagrams: 11/24/20 09:57 11/25/20 06:17 Labs: Laboratory Results - last 24 hr 11/24/20 11/24/20 11/24/20 09:57 09:57 09:57 PT INR APTT Sodium Potassium Chloride Carbon Dioxide BUN Creatinine Estimated GFR BUN/Creatinine Ratio Glucose Hemoglobin A1c 5.3 Calcium Troponin I Triglycerides 86 Cholesterol 232 H LDL Cholesterol, Calc 131 H HDL Cholesterol 84 H TSH 1.77 Urine Color Urine Appearance Urine pH Ur Specific [place] Urine Protein Urine Glucose (UA) Urine Ketones Urine Occult Blood Urine Nitrate Urine Bilirubin Urine Urobilinogen Ur Leukocyte Esterase Urine RBC Urine WBC Ur Squamous Epith Cells Urine Bacteria Ur Culture Indicated? SARS-CoV-2 (PCR) 11/24/20 11/24/20 11/25/20 12:28 21:35 04:24 PT 12.0 INR 1.1 APTT 31 Sodium Potassium Chloride Carbon Dioxide BUN Creatinine Estimated GFR BUN/Creatinine Ratio Glucose Hemoglobin A1c Calcium Troponin I Triglycerides Cholesterol LDL Cholesterol, Calc HDL Cholesterol TSH Urine Color Yellow Urine Appearance Clear Urine pH 5.0 Ur Specific [place] 1.025 Urine Protein Negative Urine Glucose (UA) Negative Urine Ketones Trace H Urine Occult Blood Negative Urine Nitrate Negative Urine Bilirubin Negative Urine Urobilinogen 0.2 Ur Leukocyte Esterase Negative Urine RBC None seen Urine WBC 0-1/hpf Ur Squamous Epith Cells 1-5 /hpf Urine Bacteria None seen Ur Culture Indicated? Cult not indicated SARS-CoV-2 (PCR) Negative 11/25/20 06:17 PT INR APTT Sodium 139 Potassium 3.9 Chloride 106 Carbon Dioxide 29 BUN 13 Creatinine 0.43 L Estimated GFR > 60.0 BUN/Creatinine Ratio 30.2 H Glucose 96 Hemoglobin A1c Calcium 9.1 Troponin I < 0.012 Triglycerides Cholesterol LDL Cholesterol, Calc HDL Cholesterol TSH Urine Color Urine Appearance Urine pH Ur Specific [place] Urine Protein Urine Glucose (UA) Urine Ketones Urine Occult Blood Urine Nitrate Urine Bilirubin Urine Urobilinogen Ur Leukocyte Esterase Urine RBC Urine WBC Ur Squamous Epith Cells Urine Bacteria Ur Culture Indicated? SARS-CoV-2 (PCR) Assessment & Plan Assessment & Plan narrative: Mild residual left L5 radiculopathy with some mild weakness in the left leg. I think it is unrelated to her current admission with her dizziness and weakness. Her MRI scan of her low back shows degenerative changes but nothing acute. She could follow up at some point if she has persistent ongoing hip pain. I think it is reasonable to mobilize her with physical therapy. She is having some problems with orthostatic hypotension which is being addressed by the Medicine Service. Quality VTE Deep Vein Thrombosis/Pulmonary Embolism Present on Admission: No
--- NOTE | 2020-11-25 15:14 | P.PN_ITS ---
Subjective Subjective Interval history: Naomie Trammell is a 64 y/o female admitted yesterday for dizziness, leg weakness. She denies vertigo per se. She feels light headed when upright and it has been present for over 6 weeks. She was evaluated by PT and found to have no vertigo. She has had some weakness. She reports lower extremity weakness. This is a chronic condition Exam Vital Signs (past 8 hours): - 11/25/20 08:00 11/25/20 08:30 11/25/20 12:00 Temperature 99.0 F Pulse Rate 86 Respiratory Rate 16 Blood Pressure 125/68 Pulse Oximetry 95 95 93 11/25/20 13:30 Temperature 99.1 F Pulse Rate 76 Respiratory Rate 16 Blood Pressure 128/71 Pulse Oximetry 93 Oxygen Delivery Method Room Air Oxygen Flow Rate 0 Narrative Exam Narrative: pleasant female in no acute distress Resp Other: Lungs: clear to auscultation Cardio Other: RRR nl Sl S2 2/6 JADE GI Other: abd: soft/ non tender Extrem Other: no edema Objective Labs Result Diagrams: 11/24/20 09:57 11/25/20 06:17 Labs: Laboratory Results - last 24 hr 11/24/20 11/24/20 11/24/20 09:57 09:57 09:57 PT INR APTT Sodium Potassium Chloride Carbon Dioxide BUN Creatinine Estimated GFR BUN/Creatinine Ratio Glucose Hemoglobin A1c 5.3 Calcium Troponin I Triglycerides 86 Cholesterol 232 H LDL Cholesterol, Calc 131 H HDL Cholesterol 84 H TSH 1.77 Urine Color Urine Appearance Urine pH Ur Specific [place] Urine Protein Urine Glucose (UA) Urine Ketones Urine Occult Blood Urine Nitrate Urine Bilirubin Urine Urobilinogen Ur Leukocyte Esterase Urine RBC Urine WBC Ur Squamous Epith Cells Urine Bacteria Ur Culture Indicated? 11/24/20 11/25/20 11/25/20 21:35 04:24 06:17 PT 12.0 INR 1.1 APTT 31 Sodium 139 Potassium 3.9 Chloride 106 Carbon Dioxide 29 BUN 13 Creatinine 0.43 L Estimated GFR > 60.0 BUN/Creatinine Ratio 30.2 H Glucose 96 Hemoglobin A1c Calcium 9.1 Troponin I < 0.012 Triglycerides Cholesterol LDL Cholesterol, Calc HDL Cholesterol TSH Urine Color Yellow Urine Appearance Clear Urine pH 5.0 Ur Specific [place] 1.025 Urine Protein Negative Urine Glucose (UA) Negative Urine Ketones Trace H Urine Occult Blood Negative Urine Nitrate Negative Urine Bilirubin Negative Urine Urobilinogen 0.2 Ur Leukocyte Esterase Negative Urine RBC None seen Urine WBC 0-1/hpf Ur Squamous Epith Cells 1-5 /hpf Urine Bacteria None seen Ur Culture Indicated? Cult not indicated PFSH Medical History Depression Insomnia Obstructive sleep apnea Snoring Surgical History No pertinent past surgical history Family History Mother Cancer Father Alzheimer's dementia Social History household members: spouse Smoking Status: Unknown if ever smoked Assessment & Plan Assessment & Plan narrative: 1. Dizziness- -MRI no evidence of CVA -no Vertigo per PT, -patient orthostatic with activity SBP 128 dropped to 91 systolic, heart rate increased -D/C Meclizine -D/C Trazodone causes hypotension -IVFluids, re check orthostatics -may require midodrine if persists 2. Back Pain/Leg weakness -Lumbar MRI reveals There is multilevel degenerative change. 2. At L2-L3, there is disc bulge with mild superimposed right paracentral disc protrusion. There is mild bilateral lateral recess stenosis. 3. Findings at L4-L5 are chronic. There is chronic posterior disc protrusion plus osteophyte, with moderate canal stenosis. There is mild impingement on the left L5 nerve root in the left lateral recess. 4. At L5-S1, there is moderate to severe left foraminal narrowing with left L5 nerve root impingement. No intervention needed, PT, pain control Home tomorrow if no longer orthostatic Quality VTE Deep Vein Thrombosis/Pulmonary Embolism Present on Admission: No
[2020-11-25] MEDS: ASPIRIN EC 81 MG TABLET PO (20:34)
[2020-11-25] MEDS: PARoxetine 20 MG TABLET 40 MG PO (20:34)
[2020-11-25] MEDS: ATORVASTATIN 20 MG TABLET 80 MG PO (20:35)
[2020-11-26] VITALS (8 sets, daily range): BP systolic 115–137; BP diastolic 66–77; PULSE 77–93; RESP 16–19; TEMP 36.3–37; O2SAT 93–98
[2020-11-26 06:28] LABS: Add Manual Diff / Slide Review NO; Basophils Absolute Auto 0 /uL (0-100); Basophils Percent Auto 0.4 % (0-2); Eosinophils Absolute Auto 100 /uL (0-450); Eosinophils Percent Auto 0.9 % (2-4); Hemoglobin 13.1 g/dL (12.0-16.0); Lymphocytes Absolute Auto 2400 /uL (1100-4500); Lymphocytes Percent Auto 27.7 % (25-40); Mean Corpuscular HGB Conc 32.8 % (30-36); Mean Corpuscular Hemoglobin 32.1 PG (26-34); Mean Corpuscular Volume 97.7 fL (80-100); Monocytes Absolute Auto 700 /uL (0-900); Monocytes Percent Auto 8.4 % (3-14); Neutrophils Absolute Auto 5400 /uL (1500-7000); Neutrophils Percent Auto 62.6 % (50-75); Platelet Count 187 X10^3/uL (150-400); Red Cell Distribution Width 13.7 % (11.6-14.8); White Blood Cell Count 8.6 X10^3/uL (4.5-11.0)
[2020-11-26 06:33] LABS: Alanine Aminotransferase 13 IU/L (<35); Albumin Globulin Ratio 1.5 (1.0-2.8); Alkaline Phosphatase 78 U/L (38-126); Aspartate Aminotransferase 19 IU/L (14-36); BUN Creatinine Ratio 34.9 (6-22); Bilirubin Total 0.3 mg/dL (0.2-1.3); Blood Urea Nitrogen 15 mg/dL (7-17); Calcium 9.4 mg/dL (8.4-10.2); Carbon Dioxide 30 mmol/L (22-32); Chloride 105 mmol/L (98-107); Estimated Glomerular Filt Rate > 60.0 mL/min (>60); Globulin 2.6 g/dL (1.7-4.1); Glucose 105 mg/dL (80-110); HEMOLYSIS < 15 (0-50); Potassium 3.9 mmol/L (3.4-5.1); Sodium 140 mmol/L (137-145); Total Protein 6.6 g/dL (6.3-8.2)
[2020-11-26] MEDS: SODIUM CHLORIDE 0.9% FLUSH 10 ML IV (09:30)
[2020-11-26] MEDS: ENOXAPARIN 40 MG/0.4 ML SYRINGE SUBCUT (09:30)
--- NOTE | 2020-11-26 09:39 | DI.MRI.S_ITS ---
PROCEDURE: MR CERVICAL SPINE WO/W CON INDICATIONS: neck pain, dizzy, imbalanced TECHNIQUE: Noncontrast sagittal T1 spin echo and T2 fast spin echo, sagittal STIR, foraminal oblique sagittal T2 fast spin echo, axial gradient echo or T2 fast spin echo through the cervical spine. After the administration of contrast, axial and sagittal T1 spin echo with fat saturation through the cervical spine. COMPARISON: None. FINDINGS: Image quality: Excellent. Alignment and curvature: Loss of normal cervical lordosis. Mild grade 1 anterolisthesis of C3 on C4. Mild grade 1 retrolisthesis of C5 on C6. Marrow: Marrow is normal in overall signal, without suspicious enhancement. Moderate reactive signal within the endplates adjacent to the C5-C6 intervertebral disc. Mild reactive signal within the endplates adjacent to the C3-C4, C4-C5, and C6-C7 intervertebral discs. Spinal cord: Visualized spinal cord has normal size and signal. No cerebellar tonsillar herniation. No abnormal intramedullary enhancement. Paraspinous soft tissues: No paravertebral masses or suspicious enhancement. C2-3: Mild disc desiccation and diffuse disc bulge. Moderate left and mild right facet and uncovertebral hypertrophy. Mild canal stenosis. Severe left and moderate right foraminal stenosis. Left C3 nerve root compression. C3-4: Moderate disc height loss and desiccation. Mild diffuse disc bulge. Congenital canal stenosis. Moderate left and mild right facet and uncovertebral hypertrophy. Moderate canal stenosis. Severe left and moderate to severe right foraminal stenosis. Left greater than right C4 nerve root compression. C4-5: Moderate disc desiccation. Mild diffuse disc bulge. Moderate facet and uncovertebral hypertrophy bilaterally. Mild canal stenosis. Moderate left and mild right foraminal stenosis. C5-6: Severe disc height loss and desiccation. Moderate diffuse disc bulge. Moderate facet and uncovertebral hypertrophy bilaterally. Severe canal stenosis. Moderate cord flattening. Severe bilateral foraminal stenosis with bilateral C6 nerve root compression. C6-7: Moderate disc height loss and desiccation. Mild diffuse disc bulge with superimposed left paracentral protrusion. Mild facet and uncovertebral hypertrophy bilaterally. Moderate canal stenosis. Mild right and moderate left foraminal stenosis. C7-T1: Moderate disc desiccation. Mild disc height loss and diffuse disc bulge. Mild facet and uncovertebral hypertrophy bilaterally. Mild canal stenosis. Mild bilateral foraminal stenosis. IMPRESSION: 1. No acute process. 2. Multilevel degenerative disc and facet disease, as well as uncovertebral hypertrophy. 3. Multilevel canal stenoses, worst at C5-C6, where there is cord flattening present. 4. Multilevel foraminal stenoses, worst at C2-C3, C3-C4, and C5-C6, where there is associated intraforaminal nerve root compression. Recommend correlation with clinical symptoms to ascertain relevance of these findings. Dictated by: Israel Turner M.D. on 11/26/2020 at 9:55 Approved by: Israel Turner M.D. on 11/26/2020 at 9:59
--- NOTE | 2020-11-26 09:52 | PM.DS.1 ---
History of Present Illness History of Present Illness Chief complaint: Staggering, Not able to stay balanced Narrative: Per Mirandaviki Griffiths: Patient is a 64-year-old female Naomie Trammell who presented to the ED today with the chief complaint of some dizziness, lightheadedness, and balance issues off and on since last night. She reports that it she feels like she is spinning not the room and only with movement or activity, not at rest laying in the bed. She denies any blurred /change in vision, difficulty with speech or swallowing. She denies any runny nose, nasal congestion, cough, ear pain, or recent illness/injury, or trauma. She denies chest pain or shortness of breath, nausea, vomiting or diarrhea. She does admit that she has noticed for many months that her left leg seems to lag behind a bit and she has nearly fallen a few times when she steps to put weight on it. During admit exam patient denied difficulty with coordination dorsiflexion, or ambulation. She denied extremity numbness, tingling, weakness, swelling of hands/feet, or impaired fine motor skills. She denies any fever chills, has no midline back pain and denies bowel or bladder incontinence. Patient has a medical history depression, insomnia, obstructive sleep apnea. Patient's vitals are stable and unremarkable upon admit BP 133/69, HR 81, R 17, 96% on room air, patient's CBC and CMP are all unremarkable within normal limits, patient had a negative troponin. Patient's brain CT was negative for any acute intracranial disease processes.Lumbar MRI demonstrated multilevel degenerative changes. L2-L3, there is disc bulge with mild superimposed right paracentral disc protrusion. There is mild bilateral lateral recess stenosis. L4-L5 are chronic. There is chronic posterior disc protrusion plus osteophyte, with moderate canal stenosis. There is mild impingement on the left L5 nerve root in the left lateral recess. L5-S1, there is moderate to severe left foraminal narrowing with left L5 nerve root impingement. Patient admitted for neurological deficit/balance issues, stroke rule out. Discharge Providers Provider Date of admission: 11/24/20 13:15 Discharge Date: 11/26/20 Consults: 11/24/20 18:31 Consult to Discharge Planning Routine Comment: Consult to Occupational Therapy Evaluate & Treat Comment: Balance issues Physician Instructions: Evaluate and treat Consult to Physical Therapy Evaluate & Treat Comment: Balance issues Physician Instructions: Evaluate and Treat 11/25/20 03:48 Consult to Physical Therapy Evaluate & Treat Comment: Vertigo Physician Instructions: Evaluate and Treat 11/25/20 12:34 Consult to Physician Routine Comment: Consulting Provider: Amada Bettencourt Reason for consultation: back pain 11/26/20 11:29 Consult to Home Health Routine Comment: orthostatic, bilateral stenosis, degenerative dixon Reason For Exam: 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 Dizziness/imbalance, likely cervicogenic, with c5-c6 cervical stenosis 2. Back pain 3. Depression 4. Insomnia 5. Lumbar stenosis Hospital Course: Ms. Trammell was admitted with dizziness, imbalance. Initially she was a stroke rule out, brain MRI showed no evidence of stroke. She did have positive orthostatics numbers but with fluid bolus and resolution of blood pressure drop her symptoms minimally changed. She did note significant neck tightness. MRI of c-spine showed cervical stenosis. MRI of L-spine showed lumbar stenosis. Orthopedic surgery was consulted and did not think she had any emergent need for surgery. She had no lower/upper extremity weakness. No numbness, no incontinence. She was given a dose of decadron and prescribed a medrol bertrand. She also was given flexeril for symptom control. She was given a soft c-collar. She was recommended to follow up closely with orthopedic surgery, Dr. Brady who will monitor her progression and determine if need to have surgical intervention. She was encouraged to monitor for new neurologic symptoms like weakness, incontinence, numbness and return to the hospital if this is present. Exam Vital Signs (past 8 hours): Oxygen Delivery Method Room Air Oxygen Flow Rate 0 Objective Labs Result Diagrams: 11/26/20 06:10 11/26/20 06:10 [facility] Medical History Depression Insomnia Obstructive sleep apnea Snoring Surgical History No pertinent past surgical history Family History Mother Cancer Father Alzheimer's dementia Social History household members: spouse Smoking Status: Unknown if ever smoked Discharge Plan Discharge Plan Patient Disposition: Home Provider Discharge Comment: Ms. Trammell was admitted with neck pain, dizziness, imbalance. She had workup done and was negative for a stroke. She had a blood pressure that dropped slightly, but fixing that did not fix her symptoms. She was monitored for any cardiac abnormal rhythms and none were found. She did have significant arthritis in her spine and narrowing causing pinching of nerves and spine. This was discussed with a surgeon, and she did not need surgery right now. She is recommended to take a steroid to reduce possible swelling which was sent to her pharmacy. She should wear the cervical collar as much as possible to help her posture. She should follow up with orthopedics in 1-[address] Shabazz. Discharge orders & Medications Prescriptions: New methylprednisolone [Medrol (Bertrand)] 4 mg tablets,dose pack See Rx Instructions .ROUTE .COMPLEX Qty: 21 RF: 0 meclizine 25 mg tablet 25 mg PO BID-TID PRN (Reason: dizziness) Qty: 14 RF: 0 cyclobenzaprine 5 mg tablet 5 mg PO TID PRN (Reason: muscle spasm) Qty: 20 RF: 0 Continued celecoxib 100 mg capsule 100 mg PO QPM RF: 0 trazodone 50 mg tablet 50 mg PO BEDTIME RF: 0 aspirin [Adult Low Dose Aspirin] 81 mg tablet,delayed release (DR/EC) 81 mg PO QPM RF: 0 paroxetine HCl 40 mg tablet 40 mg PO QPM RF: 0 Follow up/Referrals: Marcelino Brady MD [Physician] - (cervical stenosis at spine c5-c6 causing cervicogenic dizziness and imbalance, dc'd on medrol bertrand and with soft collar) Diet/Activity/Treatments Diet: Regular Visit Report/Discharge Packet Instructions: DI for Dizziness-Nonvertigo, DI for Lumbar Radiculopathy Discharge Data Attending Provider: Magdalena Andresw VTE Deep Vein Thrombosis/Pulmonary Embolism Present on Admission: No
--- NOTE | 2020-11-26 11:30 | CM.DANOTE ---
Patient is a 64 year old female who was admitted on 11/24/20 for Imbalance, unsteady. Pt has MCR and [facility] and her PCP is Eloisa Azevedo at [facility]. EMR was reviewed. Per MD, pt to have Ortho Consult to determine if any interventions or recommendations to help with pt's dizziness and unsteadiness and findings of degenerative disc disease. Per Ortho, recommend outpt follow up and to work with PT/OT. Per PT/OT, recommending safe d/c home with assist and HH. SW met bedside with pt and explained role and she confirms that she is feeling better. Pt lives at home with spouse who has Parkinson's and cog deficits and pt is his primary CG. Pt denies any hx of SNF or HH for herself and SW discussed the recommendation of HH and their services and frequency and she confirms that she feels HH would be helpful. SW provided the HH Choice List and no HH preference. MD signed F2F and agreeable with HH at d/c but pt likely not stable for d/c yet today but possibly tomorrow. SW made new referral to [facility] based on vendor calendar and likely pt d/c tomorrow and [facility] does not cover [facility]. SW faxed clinicals to review but did not fax F2F or MD orders yet. Plan: SW to follow for plan of home with spouse when medically stable and new [facility] referral. SW to fax completed F2F, MD orders, and d/c summary to [facility] at discharge. EVERETTE Edwards
[2020-11-26] MEDS: ACETAMINOPHEN 325 MG TABLET 650 MG PO (12:05)
--- NOTE | 2020-11-26 13:15 | PT-IP ANOTE ---
Per hospitalist hold pt due to MRI cervical results.
--- NOTE | 2020-11-26 13:15 | OT.IPNOTE ---
Pt just having cervical MRI, per Hospitalist to hold therapy at this time. Hold OT eval until further instructions.
--- NOTE | 2020-11-26 15:27 | PT.IPTN ---
Physical Therapy Treatment Note M2 PT-IP Current Condition Start: 11/25/20 13:31 Freq: NEEDED Status: Active Protocol: Document 11/25/20 09:45 AB (Rec: 11/25/20 13:55 AB [id number]) Physical Therapy Current Condition Current Condition Evaluation Date 11/25/20 Treatment Diagnosis r/o CVA; vertigo; difficulty in walking Onset Date 11/24/20 M3 PT-IP Subjective Start: 11/25/20 13:31 Freq: NEEDED Status: Active Protocol: Document 11/26/20 15:10 CLB (Rec: 11/26/20 16:03 CLB [id number]) Subjective Physical Therapy Visit Type Type Treatment Note Visit Start Time 15:10 Visit Stop Time 15:27 Total Visit Minutes 17 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 Physical Therapy Visit Comments Patient Comments pt is agreeable to do PT M4 PT-IP Mobility and Gait Start: 11/25/20 13:31 Freq: NEEDED Status: Active Protocol: Document 11/26/20 15:10 CLB (Rec: 11/26/20 16:03 CLB [id number]) PT-Bed Mobility Assessment Rolling Type of Rolling Roll to Left Supine to Sit Supine to Sit Standby Assistance PT-Transfer Assessment Sit to and From Stand Sit to and from Stand Standby Assistance Equipment Transfer Assistive Device None,Gait Belt Orthotic/Prosthetic Devices or Brace: Yes Transfer Ability Level of Assist Standby Assistance Comments Mobility Comments OT assisted pt with donning neck brace, pt educated on LR. Pt BP in supine 118/68, sitting 125/74, standing 131/ 71. Pt w/o complaint of dizziness. Pt stood and ambulated in schreiber ~220ft w/o AD SBA. Pt with steady gait and good safety awareness. Gait Assessment Gait Gait Assistance Required: Standby Assistance Distance (Feet) 220 Able to Maintain Weight Bearing Status Yes During Gait Assistive Devices Assistive Device None,Gait Belt Orthotic/Prosthetic Devices or Brace: Yes Gait Deviations General Gait Pattern Antalgic,Decreased Stride Length,Decreased Feet Clearance,Wide Based Gait Factors Limiting Gait Function Factors Limiting Gait Function Decreased Activity Tolerance, Decreased Strength,Difficulty Following Directions Comments Gait Comments pls refer to mobility section for details Stair Climbing Assessment Comments Stair Climbing Comments ramp entry PT-Balance Assessment Sitting Balance and Reactions Static Sitting Balance Ability Normal Dynamic Sitting Balance Ability Good Standing Balance and Reactions Static Standing Balance Ability Good Dynamic Standing Balance Ability Fair Device Used without AD M5 PT-IP Objective Assessments Start: 11/25/20 13:31 Freq: NEEDED Status: Active Protocol: Document 11/25/20 09:45 AB (Rec: 11/25/20 13:55 AB [id number]) Orientation Orientation/Cognition Level of Alertness Alert Orientation Name,Place,Situation Language Function Ability No Deficits Noted Safety Awareness Understands Safety Issues Memory Description No Deficits Noted Gross Range of Motion Lower Extremity ROM Assessment Within Functional Limits Strength Lower Extremity Strength Assessment Within Functional Limits Coordination Assessment Gross Coordination Gross Coordination WNL Sensation Assessment Sensation Gross Sensation WNL Muscle Tone Muscle Tone WNL Yes M6 PT-IP Treatment Start: 11/25/20 13:31 Freq: NEEDED Status: Active Protocol: Document 11/25/20 09:45 AB (Rec: 11/25/20 13:55 AB [id number]) Physical Therapy Treatment Education Education Provided Safety M7 PT-IP Assessment and Plan Start: 11/25/20 13:31 Freq: NEEDED Status: Active Protocol: Document 11/26/20 15:10 CLB (Rec: 11/26/20 16:03 CLB [id number]) PT Summary Assessment and Plan Potential Rehabilitation Potential Good Status of Condition at Evaluation Evolving Summary Impairments Pain,ROM,Strength,Balance, Coordination,Sensation,Tone, Cognition,Bed Mobility, Transfers,Gait,Activity Tolerance Assessment Summary Pt required SBA for all mobility. Pt with improved gait quality requiring SBA w/o AD for ambulation of ~220ft. Pt with BP WNL and no c/o dizziness. Goals Bed Mobility Goal Independent Transfer Goal Independent,Cane,Front Wheeled Walker Gait Goal Independent,Cane,Front Wheel Walker Gait Distance 200 Other Goals ambulation without AD 200 ft SBA Days to Meet Goals 5 Treatment Plan Physical Therapy Treatment Plan Bed Mobility Training,Transfer Training,Gait Training, Therapeutic Exercise,Balance Retraining,Post Op Education, Discharge Planning,Hot or Cold Pack,Neuromuscular Re-ed, Coordination Retraining,Manual Therapy Precautions Other Precautions falls Recommendations To Nursing Amount of Assist Needed 1 Person Assist Discharge Recommendations PT Discharge Recommendations Home with Assistance,Home Health Transportation Needs at Discharge Private Vehicle
[2020-11-26] MEDS: DEXAMETHASONE 4 MG/ML VIAL IV (15:33)
--- NOTE | 2020-11-26 15:45 | OT.IP.EVAL ---
Past Medical History (Last Reviewed 11/25/20 @ 12:30 by Amada Bettencourt MD) Depression Insomnia No pertinent past surgical history Obstructive sleep apnea Snoring Surgical History (Last Reviewed 11/25/20 @ 12:30 by Amada Bettencourt MD) No pertinent past surgical history Occupational Therapy Inpatient Evaluation/Re-Eval M1 PT/OT-IP Prior Functional Status Start: 11/25/20 13:31 Freq: NEEDED Status: Active Protocol: Document 11/26/20 15:17 [facility] (Rec: 11/26/20 17:06 [facility] [id number]) Medical Review Prior Functional Status Medical History Reviewed Yes Communication able to make needs known Mobility and Gait pt stated that she is independent with all mobilities and ambulation without AD Activities of Daily Living and IADL's Completely independent with all ADl, IADL, driving and caring for her . Social History Household Members spouse Living Arrangements House Number of Floors (Floors) One Floor Number of Stairs To Enter/Railing? ramp to enter Home Environment Standard Height Toilet,Walk in Shower Home Equipment Quad Cane,Raised Toilet Seat w /Armrests,Shower Seat without Backrest Additional Social History Comment pt stated that her spouse has parkinson's dse and she takes care of him providing minimal physical assistance as needed M2 OT-IP Current Condition Start: 11/26/20 16:49 Freq: Status: Active Protocol: Document 11/26/20 15:17 [facility] (Rec: 11/26/20 17:06 [facility] [id number]) Occupational Therapy Current Condition Current Condition Evaluation Date 11/26/20 Treatment Diagnosis Dizziness Diagnosis Onset Date 11/24/20 M3 OT- IP Subjective and Pain Start: 11/26/20 16:49 Freq: Status: Active Protocol: Document 11/26/20 15:17 [facility] (Rec: 11/26/20 17:06 [facility] [id number]) OT- Subjective Occupational Therapy Visit Type Type Initial Evaluation Visit Start Time 15:17 Visit Stop Time 15:45 Total Visit Minutes 28 Occupational Therapy Visit Comments Patient Comments Pt agreed to do OT eval and wanting to get dressed prior to going home. Patient/Caregiver Goals To go home. M4 OT- IP ADL's Start: 11/26/20 16:49 Freq: Status: Active Protocol: Document 11/26/20 15:17 [facility] (Rec: 11/26/20 17:06 [facility] [id number]) OT [id number] Comments OT Self-Feeding Comments Independent OT ADL-Grooming General Evaluation Grooming Ability Independent OT ADL-Oral Care Comments Oral Care Comments Educated would be easier to spit into a cup with having to have her soft collar on. OT ADL-Dressing General Eval Upper Body Dressing Ability Independent Lower Body Dressing Ability Independent Comments OT Dressing Comments Independent, cues pt to sit for LB dressing needs now for safety. OT ADL-Toileting General Evaluation Toileting Ability Independent OT ADL-Bathing Comments OT Bathing Comments Pt states to shower at home. M5 OT- IP IADL's Start: 11/26/20 16:49 Freq: Status: Active Protocol: Document 11/26/20 15:17 [facility] (Rec: 11/26/20 17:06 [facility] [id number]) OT-Instrumental Activities of Daily Living Home Safety Awareness Awareness of Need for Assistance at Home Good Awareness Ability to Problem Solve Emergency Able to Problem Solve Situations Home Safety Comments Pt aware be careful not to do any heavy lifting, and keep lifting to a minimal until able to see ortho . Pt states her can assist and realizes will not be able to drive due to soft collar limited her neck mobility. Medication Management Medication Management No Deficits Identified Money Management Money Management No Deficits Identified Meal Preparation Meal Preparation Comments Pt may need assist due precautionary precautions for her cervical and back. M6 OT- IP Functional Cognition Start: 11/26/20 16:49 Freq: Status: Active Protocol: Document 11/26/20 15:17 [facility] (Rec: 11/26/20 17:06 [facility] [id number]) Cognitive Factors Limiting Selfcare Function Cognitive Ability Level of Alertness Alert Patient Orientation Name,Age,Birthday,Month,Date, Year,Day of Week,Place, Situation Attention Span Ability Capable of Focused Attention, Capable of Sustained Attention Ability to Follow Commands Able to Follow Multi-Step Commands Memory Description No Deficits Noted Safety Awareness No Deficits Noted Problem Solving Ability No deficits Noted Cognitive Comments Cognitive Assessment Comments Pt scored 60 seconds on [place] Making Part B which implies completely intact for cognitive needs. OT- Vision and Hearing OT- Hearing Assessment OT- Hearing Assessment WFL OT- Vision Assessment Visual Acuity Glasses All The Time M7 OT- IP Mobility and Balance Start: 11/26/20 16:49 Freq: Status: Active Protocol: Document 11/26/20 15:17 [facility] (Rec: 11/26/20 17:06 [facility] [id number]) OT- Bed Mobility Assessment Rolling Type of Rolling Roll to Right Level of Assistance Independent Supine to Sit Supine to Sit Assist Standby Assistance Sit to Supine Sit to Supine Assist Standby Assistance OT-Transfer Assessment Sit to and From Stand Sit to and from Stand Independent Transfers Transfer Ability Independent Technique Transfer Destination Bed,Chair,Toilet Comments Mobility Comments Pt needing initial cues for log rolling as is use to pulling up into long sitting in order to get out of bed. Pt given information sheet and educated on the importance of log rolling at this time for the pt. OT- Balance Assessment Sitting Balance and Reactions Static Sitting Balance Ability Normal Dynamic Sitting Balance Ability Normal Standing Balance and Reactions Static Standing Balance Ability Normal Dynamic Standing Balance Ability Good M8 OT- IP Objective Assessments Start: 11/26/20 16:49 Freq: Status: Active Protocol: Document 11/26/20 15:17 [facility] (Rec: 11/26/20 17:06 [facility] [id number]) OT Gross Range of Motion Upper Extremity Range of Motion Assessment Within Functional Limits OT-Muscle Tone Assessment Muscle Tone WNL Yes M9 OT- IP Assessment and Plan Start: 11/26/20 16:49 Freq: Status: Active Protocol: Document 11/26/20 15:17 [facility] (Rec: 11/26/20 17:06 [facility] [id number]) OT Summary Assessment and Plan Potential Rehabilitation Potential Good Analytic Complexity at Evaluation Low Summary OT Impairments Balance,Functional Mobility, Dressing,Bathing Progress Towards Goals Progressing Toward Goals Assessment Summary Pt Min Complexity and main barriers are her mutli-level degenerative changes which limits her mobility for neck and back movements. Hospitalist has recommended pt to wear the soft collar at all times and follow up with ortho. Pt to go home with assist. Goals Bathing Goal Independent Patient/Caregiver Education Goal Demonstrate Post-Op Precautions Days to Meet Goals 1 Frequency of Treatment Frequency Of Treatment Once a Day Treatment Plan OT Treatment Plan ADL Training,Functional Mobility,Patient/Family Education,Discharge Planning Discharge Recommendations OT Discharge Recommendations Home with Assistance Transportation Needs at Discharge Private Vehicle
--- NOTE | 2020-11-26 17:10 | PM.PN.1 ---
Subjective Subjective Date Patient Seen: 11/26/20 Time Patient Seen: 16:30 Interval history: Naomie continues to note some ongoing problems with a stiff neck with pains radiating into her shoulders bilaterally. Her dizziness is improved in comparison to previously. She is not having severe arm pain. She was able to ambulate with physical therapy and did not note any spasticity. She has not does not have new problems with her bowel or bladder. 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 She is ambulating without assistance does not have significant weakness in her legs. Objective Labs Result Diagrams: 11/26/20 06:10 11/26/20 06:10 Labs: Laboratory Results - last 24 hr 11/26/20 11/26/20 06:10 06:10 WBC 8.6 RBC 4.10 Hgb 13.1 Hct 40.0 MCV 97.7 MCH 32.1 MCHC 32.8 RDW 13.7 Plt Count 187 Neut % (Auto) 62.6 Lymph % (Auto) 27.7 [place] % (Auto) 8.4 Eos % (Auto) 0.9 L Baso % (Auto) 0.4 Neut # (Auto) 5400 Lymph # (Auto) 2400 [place] # (Auto) 700 Eos # (Auto) 100 Baso # (Auto) 0 Sodium 140 Potassium 3.9 Chloride 105 Carbon Dioxide 30 BUN 15 Creatinine 0.43 L Estimated GFR > 60.0 BUN/Creatinine Ratio 34.9 H Glucose 105 Calcium 9.4 Total Bilirubin 0.3 AST 19 ALT 13 Alkaline Phosphatase 78 Total Protein 6.6 Albumin 4.0 Globulin 2.6 Albumin/Globulin Ratio 1.5 her MRI scan of her cervical spine done today shows C5-6 disc disorder with evidence of some cord edema and cervical stenosis. There is pressure but it is not severely tight. [facility] Medical History Depression Insomnia Obstructive sleep apnea Snoring Surgical History No pertinent past surgical history Family History Mother Cancer Father Alzheimer's dementia Social History household members: spouse Smoking Status: Unknown if ever smoked Assessment & Plan Assessment & Plan narrative: Cervical stenosis C5-6 with ongoing symptoms. I discussed with the Medicine service today that she was given a dose of Decadron and placed on a Medrol Dosepak. Work on arranging for a follow-up appointment with Dr. Shabazz as an outpatient as she may require surgical intervention for her cervical spine. She is not acutely neuropathic her myelopathic today. She was given a soft collar for comfort. I do think she is stable for discharge but we discussed being cautious and avoiding falls and trauma to the head. Quality VTE Deep Vein Thrombosis/Pulmonary Embolism Present on Admission: No
--- NOTE | 2020-11-28 10:44 | CM.DPNOTE ---
Late entry. Faxed and received fax conf. DC summary to [facility]. Evi Horta CM Asst.
== END 2020-11-26 16:40 | disposition home or self-care (01) ==
LOC: ED 12:16 → AC 13:16
PROVIDERS: Nurse Practitioner Family; Admitting Provider Internal Medicine; Emergency Provider Emergency Medicine; Referring Provider Emergency Medicine; Visit Provider Internal Medicine
DX: R42 Dizziness and giddiness (principal); M48.02 Spinal stenosis, cervical region; M48.061 Spinal stenosis, lumbar region without neurogenic claudication; G47.33 Obstructive sleep apnea (adult) (pediatric); F32.9 Major depressive disorder, single episode, unspecified; M54.9 Dorsalgia, unspecified; G47.00 Insomnia, unspecified; Z20.822 Contact with and (suspected) exposure to COVID-19
CPT/HCPCS: 36415; 36592; 70450; 70548; 70553; 72148; 72156; 80048; 80053; 80061; 80305; 81001; 81003; 82550; 82962; 83036; 84443; 84484; 85025; 85610; 85730; 87635; 93005; 96361; 96372; 96374; 97116; 97162; 97165; 97530; 97535; 99285; C9803; G0378; A9579; J1100; J1650

== ENCOUNTER → 2021-08-24 10:13 | Outpatient (CLI) | payer MEDICARE, OTHER, SELFPAY ==
[2020-11-24 14:19] VITALS: BMI 20.9
--- NOTE | 2021-08-24 | DI.RAD.S_ITS ---
PROCEDURE: XR CERVICAL SPINE 2V OR 3V INDICATIONS: cervicalgia TECHNIQUE: 3 view(s) of the cervical spine were acquired. COMPARISON: [facility], MR, MR CERVICAL SPINE WO/W CON, 11/26/2020, 9:59. FINDINGS: Bones: No fractures or dislocations to the C7-T1 level. The lateral masses of C1 appear intact on the odontoid view. No suspicious bony lesions. Anterior fusion is present at C5-6 with intervertebral spacer. Hardware is intact. There is trace 1-2 mm retrolisthesis of C3 on C4. Severe disc space narrowing is present at C6-7, moderate C3-4. Multilevel uncovertebral hypertrophy is present. Soft tissues: No prevertebral soft tissue swelling. IMPRESSION: Postsurgical and degenerative changes as above. Dictated by: Maryann Overton M.D. on 08/24/2021 at 15:53 Approved by: Maryann Overton M.D. on 08/24/2021 at 15:54
== END ==
PROVIDERS: PCP Internal Medicine; Referring Provider Neurological Surgery; Visit Provider Neurological Surgery
DX: M54.2 Cervicalgia (principal); M47.812 Spondylosis without myelopathy or radiculopathy, cervical region; Z98.1 Arthrodesis status
CPT/HCPCS: 72040

== ENCOUNTER → 2021-08-31 09:48 | Outpatient (CLI) | payer MEDICARE, OTHER, SELFPAY ==
[2020-11-24 14:19] VITALS: BMI 20.9
--- NOTE | 2021-08-31 | DI.RAD.S_ITS ---
PROCEDURE: XR SHOULDER RT MIN 2V INDICATIONS: Pain in right shoulder TECHNIQUE: 3 views of the shoulder were acquired. COMPARISON: None. FINDINGS: Bones: No fractures or dislocations. No suspicious bony lesions. Visualized ribs appear intact. Severe acromioclavicular degenerative narrowing is present. Mild high-riding appearance is present within the humeral head. Soft tissues: No suspicious soft tissue calcifications. IMPRESSION: High riding appearance of the humeral head, which can be indicative of rotator cuff pathology. Severe acromioclavicular degenerative narrowing. Dictated by: Maryann Overton M.D. on 08/31/2021 at 9:53 Approved by: Maryann Overton M.D. on 08/31/2021 at 9:55
== END ==
PROVIDERS: PCP Internal Medicine; Referring Provider Neurological Surgery; Visit Provider Neurological Surgery
DX: M25.511 Pain in right shoulder (principal)
CPT/HCPCS: 73030

== ENCOUNTER → 2021-10-11 10:42 | Outpatient (CLI) | payer MEDICARE, OTHER, SELFPAY ==
[2020-11-24 14:19] VITALS: BMI 20.9
--- NOTE | 2021-10-11 | DI.RAD.S_ITS ---
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 COMPARISON: [facility], CR, XR CERVICAL SPINE 2V OR 3V, 08/24/2021, 10:08. FINDINGS: Bones: No fractures or dislocations to the T1 level. No suspicious bony lesions. Multilevel degenerative changes present as before, not substantially changed. Redemonstrated is anterior fusion C5-C6 with interbody spacer placement. Hardware appears similar to before on the single view. Soft tissues: No prevertebral soft tissue swelling. IMPRESSION: Similar appearance of C5-C6 fusion. Dictated by: Maicol Rivas M.D. on 10/11/2021 at 20:24 Approved by: Maicol Rivas M.D. on 10/11/2021 at 20:25
== END ==
PROVIDERS: PCP Internal Medicine; Referring Provider Neurological Surgery; Visit Provider Neurological Surgery
DX: M50.022 Cervical disc disorder at C5-C6 level with myelopathy (principal); Z98.1 Arthrodesis status
CPT/HCPCS: 72020

== ENCOUNTER → 2021-11-17 11:12 | Outpatient (CLI) | payer MEDICARE, OTHER, SELFPAY ==
[2020-11-24 14:19] VITALS: BMI 20.9
--- NOTE | 2021-11-17 | DI.RAD.S_ITS ---
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 COMPARISON: [facility], CR, XR CERVICAL SPINE 1V, 10/11/2021, 10:39. FINDINGS: Bones: Vertebral body height and alignment is maintained. Generalized decreased osseous mineralization present. Normal prevertebral soft tissue and craniovertebral a shapes present. Anterior cervical discectomy and fusion with plate and screw hardware noted at C5-6. Disc space narrowing and facet sclerosis present in the mid cervical spine. Soft tissues: No prevertebral soft tissue swelling. IMPRESSION: Degenerative disc disease and arthropathy in mid cervical spine. C5-6 discectomy and fusion with anterior plate and screw hardware in good position Approved by: Dave Mosley M.D. on 11/17/2021 at 15:53
== END ==
PROVIDERS: PCP Internal Medicine; Referring Provider Neurological Surgery; Visit Provider Neurological Surgery
DX: M50.022 Cervical disc disorder at C5-C6 level with myelopathy (principal); M47.12 Other spondylosis with myelopathy, cervical region; M50.020 Cervical disc disorder with myelopathy, mid-cervical region, unspecified level
CPT/HCPCS: 72020

== ENCOUNTER → 2022-06-01 09:21 | Outpatient (CLI) | payer MEDICARE, OTHER, SELFPAY ==
[2020-11-24 14:19] VITALS: BMI 20.9
--- NOTE | 2022-06-01 09:24 | DI.MRI.S_ITS ---
PROCEDURE: MR HEAD/BRAIN WO/W CON INDICATIONS: 66-year-old female with tremor TECHNIQUE: Noncontrast axial T1 spin echo, axial T2 fast spin echo, sagittal and axial FLAIR, coronal T2 fast spin echo, axial gradient echo, axial diffusion and ADC through the brain. After the administration of contrast, axial and coronal and sagittal 3D VIBE or T1 spin echo with fat saturation through the brain. COMPARISON: None. FINDINGS: Image quality: Excellent. CSF Spaces: Basal cisterns are patent. No extra-axial fluid collections. Ventricles are normal in size and shape. Brain: No intracranial masses or hemorrhage. Qu[place]ñonez/white matter interface is normal. Brainstem appears normal. Diffusion-weighted sequence is unremarkable without evidence of acute infarct. Normal intravascular flow voids are present. Mild atrophy and white matter chronic ischemic change noted. No abnormal enhancement. Skull and face: Calvarial marrow is normal in signal. Orbits appear normal. Sinuses: Sinuses and mastoids appear clear. IMPRESSION: Mild atrophy and chronic ischemic change without intracranial hemorrhage, infarct or mass lesion Approved by: Dave Mosley M.D. on 06/01/2022 at 13:18
== END ==
PROVIDERS: PCP Internal Medicine; Referring Provider Student in an Organized Health Care Education/Training Program; Visit Provider Student in an Organized Health Care Education/Training Program
DX: R25.1 Tremor, unspecified (principal); M06.9 Rheumatoid arthritis, unspecified; Z13.820 Encounter for screening for osteoporosis; M81.0 Age-related osteoporosis without current pathological fracture; Z78.0 Asymptomatic menopausal state
CPT/HCPCS: 70553; 77080; A9579

== ENCOUNTER → 2025-03-10 13:03 | Outpatient (CLI) | payer MEDICARE, OTHER, SELFPAY ==
[2020-11-24 14:19] VITALS: BMI 20.9
--- NOTE | 2025-03-10 13:06 | DI.US.S_ITS ---
PROCEDURE: US PELVIC COMPLETE
== END ==
DX: R10.9 Unspecified abdominal pain (principal)
CPT/HCPCS: 76830; 76856